=== PATIENT | male | born 1945 | race Caucasian/White ===

== ENCOUNTER 2017-05-27 19:41 | Emergency (ER) | payer MEDICARE, MEDICAID ==
[2017-05-27] MEDS ORDERED: Sodium Chloride 0.9% 10 ML Syringe FLUSH PRN (19:45)
[2017-05-27] MEDS ORDERED: Sodium Chloride 0.9% 2.5 ML Syringe FLUSH PRN (19:45)
--- NOTE | 2017-05-27 19:50 | EDM.PDOC ---
ED HPI GENERAL MEDICAL PROBLEM - General Stated Complaint: PT HAS FEVER Time Seen by Provider: 05/27/17 19:42 - History of Present Illness INITIAL COMMENTS - FREE TEXT/NARRATIVE: HISTORY AND PHYSICAL: History of present illness: Patient 71-year-old male with history of dementia from correction was recently diagnosed with pneumonia and was sent her for fever and generalized weakness upon arrival patient's awake he is alert he's appropriate he follows commands and he has no complaints. He is reporting a temperature of 100.4 prior to arrival Review of systems: As per history of present illness and below otherwise all systems reviewed and negative. Past medical history: As per history of present illness and as reviewed below otherwise noncontributory. Surgical history: As per history of present illness and as reviewed below otherwise noncontributory. Social history: No reported history of drug or alcohol abuse. Family history: As per history of present illness and as reviewed below otherwise noncontributory. Physical exam: HEENT: Atraumatic, normocephalic, pupils reactive, negative for conjunctival pallor or scleral icterus, mucous membranes moist, throat clear, neck supple, nontender, trachea midline. Generally poor dentition with multiple dental caries and tooth loss Lungs: Coarse bilaterally, breath sounds equal bilaterally, chest nontender. Heart: S1S2, regular, negative for clicks, rubs, or JVD. Abdomen: Soft, nondistended, nontender. Negative for masses or hepatosplenomegaly. Negative for costovertebral tenderness. Pelvis: Stable nontender. Genitourinary: Deferred. Rectal: Deferred. Extremities: Atraumatic, negative for cords or calf pain. Neurovascular unremarkable. Neuro: Awake, alert, follows commands moves all extremities limited but grossly nonfocal exam Diagnostics: CBC CMP troponin lactic acid blood culture 2 chest x-ray EKG ABG Therapeutics: IV monitor Impression: 1 history pneumonia #2 history of dementia #3 reported generalized weakness Definitive disposition and diagnosis as appropriate pending reevaluation and review of above. - Related Data Allergies Allergy/AdvReac Type Severity Reaction Status Date / Time No Known Allergies Allergy Verified 05/27/17 19:59 Home Meds: Home Meds ARIPiprazole [Abilify] 10 mg PO DAILY 11/07/14 [History] Aspirin [Jim Chewable] 81 mg PO DAILY 11/07/14 [History] Calcium Citrate/Vitamin D3 [Calcet Creamy Bites] 1 each PO DAILY 11/07/14 [ History] Cholecalciferol (Vitamin D3) [Vitamin D] 400 units PO DAILY 11/07/14 [History] Divalproex Sodium [Depakote ER] 1,000 mg PO DAILY 11/07/14 [History] Divalproex Sodium [Depakote ER] 1,250 mg PO BEDTIME 11/07/14 [History] Furosemide [Lasix] 40 mg PO DAILY 11/07/14 [History] Levothyroxine Sodium [Synthroid] 100 mcg PO ACBREAKFAST 11/07/14 [History] Multivitamin [Multivitamins] 1 each PO DAILY 11/07/14 [History] busPIRone HCl [Buspirone HCl] 15 mg PO DAILY 11/07/14 [History] Social & Family History - Tobacco Use Smoking Status *Q: Former Smoker Years of Tobacco use: 35 - Alcohol Use Days Per Week of Alcohol Use: 0 - Recreational Drug Use Recreational Drug Use: No ED ROS GENERAL - Review of Systems Review Of Systems: ROS reveals no pertinent complaints other than HPI. ED EXAM, GENERAL - Physical Exam Exam: See Below (See dictation) Course - Vital Signs Last Recorded V/S: Last Vital Signs Temp 36.7 C 05/27/17 20:28 Pulse 82 05/27/17 21:23 Resp 20 05/27/17 21:23 BP 107/55 L 05/27/17 21:23 Pulse Ox 95 05/27/17 20:52 - Orders/Labs/Meds Orders: Active Orders 24 hr Category Date Time Status Cardiac Monitoring [RC] . DIRECTED Care 05/27/17 19:45 Active EKG Documentation Completion [RC] STAT Care 05/27/17 19:45 Active Pulse Oximetry [RC] ASDIRECTED Care 05/27/17 19:45 Active Chest 1V Frontal [CR] Stat Exams 05/27/17 19:46 Taken CULTURE BLOOD [BC] Stat Lab 05/27/17 20:04 Received CULTURE BLOOD [BC] Stat Lab 05/27/17 20:10 Received Sodium Chloride 0.9% [Saline Flush] Med 05/27/17 19:45 Active 10 ml FLUSH ASDIRECTED PRN Sodium Chloride 0.9% [Saline Flush] Med 05/27/17 19:45 Active 2.5 ml FLUSH ASDIRECTED PRN Blood Culture x2 Reflex Set [OM.PC] Stat Oth 05/27/17 19:45 Ordered Saline Lock Insert [OM.PC] Stat Ot 05/27/17 19:45 Ordered Medication Orders Sodium Chloride (Saline Flush) 10 ml FLUSH ASDIRECTED PRN PRN Reason: Keep Vein Open Sodium Chloride (Saline Flush) 2.5 ml FLUSH ASDIRECTED PRN PRN Reason: Keep Vein Open Labs: Laboratory Tests 05/27/17 05/27/17 05/27/17 Range/Units 20:04 20:04 20:04 WBC 14.38 H (4.0-11.0) K/uL RBC 4.24 L (4.50-5.90) M/uL Hgb 13.7 (13.0-17.0) g/dL Hct 42.7 (38.0-50.0) % MCV 100.7 H (80.0-98.0) fL MCH 32.3 H (27.0-32.0) pg MCHC 32.1 (31.0-37.0) g/dL RDW Std Deviation 63.5 H (28.0-62.0) fl RDW Coeff of Bernabe 17 H (11.0-15.0) % Plt Count 255 (150-400) K/uL MPV 10.30 (7.40-12.00) fL Neut % (Auto) 74.3 (48.0-80.0) % Lymph % (Auto) 12.0 L (16.0-40.0) % Granite % (Auto) 13.5 (0.0-15.0) % Eos % (Auto) 0.1 (0.0-7.0) % Baso % (Auto) 0.1 (0.0-1.5) % Neut # (Auto) 10.7 H (1.4-5.7) K/uL Lymph # (Auto) 1.7 (0.6-2.4) K/uL Granite # (Auto) 1.9 H (0.0-0.8) K/uL Eos # (Auto) 0.0 (0.0-0.7) K/uL Baso # (Auto) 0.0 (0.0-0.1) K/uL Nucleated RBC % 0.0 /100WBC Nucleated RBCs # 0 K/uL INR 1.06 (0.86-1.11) ABG pH (7.35-7.45) ABG pCO2 (35-45) mmHG ABG pO2 (75-100) mmHG ABG HCO3 (22-26) mEq/L ABG Total CO2 ABG Base Excess (-2.0-2.0) Lactate 1.1 (0.20-2.00) mmol/L Sodium (136-146) mmol/L Potassium (3.5-5.1) mmol/L Chloride (98-110) mmol/L Carbon Dioxide (21-31) mmol/L BUN (6.0-23.0) mg/dL Creatinine (0.6-1.5) mg/dL Est Cr Clr Drug Dosing Estimated GFR (MDRD) ml/min Glucose (60-110) mg/dL Calcium (8.8-10.8) mg/dL Total Bilirubin (0.1-1.5) mg/dL AST (5-40) IU/L ALT (8-54) IU/L Alkaline Phosphatase (40-150) Troponin I (0.0-0.29) NG/ML B-Natriuretic Peptide (<100) PG/ML Total Protein (6.0-8.0) g/dL Albumin (3.4-4.8) g/dL Globulin (2.0-3.5) g/dL Albumin/Globulin Ratio (1.3-2.8) 05/27/17 05/27/17 05/27/17 Range/Units 20:04 20:04 20:27 WBC (4.0-11.0) K/uL RBC (4.50-5.90) M/uL Hgb (13.0-17.0) g/dL Hct (38.0-50.0) % MCV (80.0-98.0) fL MCH (27.0-32.0) pg MCHC (31.0-37.0) g/dL RDW Std Deviation (28.0-62.0) fl RDW Coeff of Bernabe (11.0-15.0) % Plt Count (150-400) K/uL MPV (7.40-12.00) fL Neut % (Auto) (48.0-80.0) % Lymph % (Auto) (16.0-40.0) % Granite % (Auto) (0.0-15.0) % Eos % (Auto) (0.0-7.0) % Baso % (Auto) (0.0-1.5) % Neut # (Auto) (1.4-5.7) K/uL Lymph # (Auto) (0.6-2.4) K/uL Granite # (Auto) (0.0-0.8) K/uL Eos # (Auto) (0.0-0.7) K/uL Baso # (Auto) (0.0-0.1) K/uL Nucleated RBC % /100WBC Nucleated RBCs # K/uL INR (0.86-1.11) ABG pH 7.443 (7.35-7.45) ABG pCO2 50 H (35-45) mmHG ABG pO2 110 H (75-100) mmHG ABG HCO3 34 H (22-26) mEq/L ABG Total CO2 30.5 ABG Base Excess 8.5 H (-2.0-2.0) Lactate (0.20-2.00) mmol/L Sodium 138 (136-146) mmol/L Potassium 4.3 (3.5-5.1) mmol/L Chloride 100 (98-110) mmol/L Carbon Dioxide 31 (21-31) mmol/L BUN 26 H (6.0-23.0) mg/dL Creatinine 1.1 (0.6-1.5) mg/dL Est Cr Clr Drug Dosing TNP Estimated GFR (MDRD) > 60.0 ml/min Glucose 96 (60-110) mg/dL Calcium 9.5 (8.8-10.8) mg/dL Total Bilirubin 0.5 (0.1-1.5) mg/dL AST 27 (5-40) IU/L ALT 12 (8-54) IU/L Alkaline Phosphatase 60 (40-150) Troponin I < 0.10 (0.0-0.29) NG/ML B-Natriuretic Peptide 286 H (<100) PG/ML Total Protein 7.5 (6.0-8.0) g/dL Albumin 3.1 L (3.4-4.8) g/dL Globulin 4.4 H (2.0-3.5) g/dL Albumin/Globulin Ratio 0.7 L (1.3-2.8) Meds: Medications Generic Name Dose Route Start Last Admin Trade Name Armaan PRN Reason Stop Dose Admin Sodium Chloride 10 ml 05/27/17 19:45 Saline Flush FLUSH ASDIRECTED PRN Keep Vein Open Sodium Chloride 2.5 ml 05/27/17 19:45 Saline Flush FLUSH ASDIRECTED PRN Keep Vein Open Departure - Departure Time of Disposition: 21:28 Disposition: Home, Self-Care 01 Condition: Good Clinical Impression: Pneumonia - Discharge Information Additional Instructions: The following information is given to patients seen in the emergency department who are being discharged to home. This information is to outline your options for follow-up care. We provide all patients seen in our emergency department with a follow-up referral. The need for follow-up, as well as the timing and circumstances, are variable depending upon the specifics of your emergency department visit. If you don't have a primary care physician on staff, we will provide you with a referral. We always advise you to contact your personal physician following an emergency department visit to inform them of the circumstance of the visit and for follow-up with them and/or the need for any referrals to a consulting specialist. The emergency department will also refer you to a specialist when appropriate. This referral assures that you have the opportunity for followup care with a specialist. All of these measure are taken in an effort to provide you with optimal care, which includes your followup. Under all circumstances we always encourage you to contact your private physician who remains a resource for coordinating your care. When calling for followup care, please make the office aware that this follow-up is from your recent emergency room visit. If for any reason you are refused follow-up, please contact the [facility] emergency department at and asked to speak to the emergency department charge nurse. Continue current medication follow-up primary medical doctor on today's return as needed as discussed - My Orders Last 24 Hours: My Active Orders 05/27/17 19:45 Cardiac Monitoring [RC] . DIRECTED EKG Documentation Completion [RC] STAT Pulse Oximetry [RC] ASDIRECTED Sodium Chloride 0.9% [Saline Flush] 10 ml FLUSH ASDIRECTED PRN Sodium Chloride 0.9% [Saline Flush] 2.5 ml FLUSH ASDIRECTED PRN Blood Culture x2 Reflex Set [OM.PC] Stat Saline Lock Insert [OM.PC] Stat 05/27/17 19:46 Chest 1V Frontal [CR] Stat 05/27/17 20:04 CULTURE BLOOD [BC] Stat 05/27/17 20:10 CULTURE BLOOD [BC] Stat - Assessment/Plan Last 24 Hours: My Active Orders 05/27/17 19:45 Cardiac Monitoring [RC] . DIRECTED EKG Documentation Completion [RC] STAT Pulse Oximetry [RC] ASDIRECTED Sodium Chloride 0.9% [Saline Flush] 10 ml FLUSH ASDIRECTED PRN Sodium Chloride 0.9% [Saline Flush] 2.5 ml FLUSH ASDIRECTED PRN Blood Culture x2 Reflex Set [OM.PC] Stat Saline Lock Insert [OM.PC] Stat 05/27/17 19:46 Chest 1V Frontal [CR] Stat 05/27/17 20:04 CULTURE BLOOD [BC] Stat 05/27/17 20:10 CULTURE BLOOD [BC] Stat
[2017-05-27 20:39] LABS: CHLORIDE,CL 100 mmol/L (98-110); SODIUM,NA 138 mmol/L (136-146)
[2017-05-28 01:17] VITALS: BP 106/65
--- NOTE | 2017-05-28 11:07 | CR ---
EXAM DATE: 05/27/17 PATIENT'S AGE: 71 Patient: HONEY LEON Facility: [place], [place] Site . Site : 1945 Study: XRay Chest [id number]/28/2017 9:10:25 PM Ordering Physician: Doctor Garrison Final Report: HISTORY: Shortness of breath. FINDINGS: AP portable chest radiograph is compared with 06 Nov 2014. The patient`s chin obscures the right apex. The cardiac silhouette is normal. Hyper aeration is present. There is fibrotic changes in the lower lung salgado. There is smooth pleural-based density in the lower hemithoraces bilaterally without change suggesting pleural thickening rather than fluid. This is greater on the right. There is stable left apical pleural thickening present. There is surgical clips in left upper quadrant. IMPRESSION: 1. Apical pleural thickening and lateral pleural thickening seen along both hemithoraces, [id number] unchanged from prior exam. 2. Aeration with fibrotic changes in the lower lung field. 3. No significant interval change compared to prior exam. Dictated by Romana Quezada MD @ 05/27/2017 9:50:42 PM Dictated by: Romana Quezada MD @ 05/27/2017 21:50:48 (Electronic Signature) Report Signed by Proxy. YESENIA
== END 2017-05-27 21:55 | disposition home or self-care (01) ==
LOC: MW.ED 19:41
DX: J18.9 Pneumonia, unspecified organism (principal); Z79.82 Long term (current) use of aspirin; Z79.899 Other long term (current) drug therapy; Z87.891 Personal history of nicotine dependence
CPT/HCPCS: 36415; 36600; 71010; 71010-26; 80053; 82803; 83605; 83880; 84484; 85025; 85610; 87040; 87804; 93005; 99284; 99284-25

== ENCOUNTER 2017-09-06 09:49 | Emergency (ER) | payer MEDICARE, MEDICAID ==
--- NOTE | 2017-09-06 10:04 | EDM.PDOC ---
ED HPI GENERAL MEDICAL PROBLEM - General Chief Complaint: Respiratory Problem Stated Complaint: AMB Time Seen by Provider: 09/06/17 09:50 Source of Information: Reports: Patient History Limitations: Reports: No Limitations - History of Present Illness INITIAL COMMENTS - FREE TEXT/NARRATIVE: History of present illness: []Patient has a history of dementia and arrived by EMS from [facility] due to hypoxia on 2 L of oxygen. Review of systems: As per history of present illness and below otherwise all systems reviewed and negative. Past medical history: As per history of present illness and as reviewed below otherwise noncontributory. Surgical history: As per history of present illness and as reviewed below otherwise noncontributory. Social history: No reported history of drug or alcohol abuse. Family history: As per history of present illness and as reviewed below otherwise noncontributory. Physical exam: General: Well developed, well nourished in NAD HEENT: Atraumatic, normocephalic, pupils reactive, negative for conjunctival pallor or scleral icterus, mucous membranes moist, throat clear, neck supple, nontender, trachea midline. Lungs: Clear to auscultation, breath sounds equal bilaterally, chest nontender. Heart: S1S2, regular, negative for clicks, rubs, or JVD. Abdomen: Soft, nondistended, nontender. Negative for masses or hepatosplenomegaly. Negative for costovertebral tenderness. Pelvis: Stable nontender. Genitourinary: Deferred. Rectal: Deferred. Extremities: Atraumatic, negative for cords or calf pain. Neurovascular unremarkable. Neuro: Awake, alert, oriented. Cranial nerves II through XII unremarkable. Cerebellum unremarkable. Motor and sensory unremarkable throughout. Exam nonfocal. Diagnostics: []CBC normal, chemistry normal, chest x-ray shows chronic pleural thickening, atelectasis no acute findings, UA positive leuk esterase and 5-8 WBCs Therapeutics: []DuoNeb given here soluMedrol in route given by EMS, he maintain his O2 sats at 94 with 2 L O2 Impression: []Upper respiratory infection, UTI Plan: []Bactrim twice a day for 10 days Definitive disposition and diagnosis as appropriate pending reevaluation and review of above. - Related Data Allergies Allergy/AdvReac Type Severity Reaction Status Date / Time No Known Allergies Allergy Verified 05/27/17 19:59 Home Meds: Home Meds ARIPiprazole [Abilify] 15 mg PO BEDTIME 11/07/14 [History] Aspirin [Jim Chewable] 81 mg PO DAILY 11/07/14 [History] Calcium Citrate/Vitamin D3 [Calcet Creamy Bites] 1 each PO DAILY 11/07/14 [ History] Cholecalciferol (Vitamin D3) [Vitamin D] 400 units PO DAILY 11/07/14 [History] Divalproex Sodium [Depakote ER] 1,000 mg PO BID 11/07/14 [History] Furosemide [Lasix] 40 mg PO DAILY 11/07/14 [History] Levothyroxine Sodium [Synthroid] 100 mcg PO SUTUWETHSA@0730 11/07/14 [History] Multivitamin [Multivitamins] 1 each PO DAILY 11/07/14 [History] busPIRone HCl [Buspirone HCl] 30 mg PO BID 11/07/14 [History] Acetaminophen [Tylenol Arthritis] 650 mg PO Q6H PRN 09/06/17 [History] Divalproex Sodium 250 mg PO BEDTIME 09/06/17 [History] Levothyroxine 150 mcg PO MOFR@0730 09/06/17 [History] Solifenacin Succinate [Vesicare] 10 mg PO DAILY 09/06/17 [History] Sulfamethoxazole/Trimethoprim [Bactrim Ds Tablet] 1 each PO BID #20 tablet 09/06 [Rx] Thiamine [Vitamin B-1] 100 mg PO DAILY 09/06/17 [History] Past Medical History HEENT History: Reports: Impaired Vision Genitourinary History: Reports: Other (See Below) Other Genitourinary History: Chronic Kidney Disease Psychiatric History: Reports: Addiction, Alzheimers Disease, Anxiety, Dementia , Depression, Mood Swings, Schizophrenia Endocrine/Metabolic History: Reports: Diabetes, Type II Social & Family History - Family History Family Medical History: Noncontributory - Tobacco Use Smoking Status *Q: Never Smoker Years of Tobacco use: 35 Used Tobacco, but Quit: Yes Month Tobacco Last Used: Many years ago - Alcohol Use Days Per Week of Alcohol Use: 0 - Recreational Drug Use Recreational Drug Use: No ED ROS GENERAL - Review of Systems Review Of Systems: See Below (History of present illness) ED EXAM, GENERAL - Physical Exam Exam: See Below (See history of present illness) Course - Vital Signs Last Recorded V/S: Last Vital Signs Temp 97.8 F 09/06/17 09:52 Pulse 87 09/06/17 12:15 Resp 18 09/06/17 12:15 BP 101/63 09/06/17 12:15 Pulse Ox 93 L 09/06/17 12:15 - Orders/Labs/Meds Orders: Active Orders 24 hr Category Date Time Status Chest 1V Frontal [CR] Stat Exams 09/06/17 10:03 Taken Labs: Laboratory Tests 09/06/17 09/06/17 09/06/17 Range/Units 10:14 10:14 10:14 WBC 9.43 (4.0-11.0) K/uL RBC 4.49 L (4.50-5.90) M/uL Hgb 14.7 (13.0-17.0) g/dL Hct 45.8 (38.0-50.0) % MCV 102.0 H (80.0-98.0) fL MCH 32.7 H (27.0-32.0) pg MCHC 32.1 (31.0-37.0) g/dL RDW Std Deviation 62.1 H (28.0-62.0) fl RDW Coeff of Bernabe 17 H (11.0-15.0) % Plt Count 229 (150-400) K/uL MPV 10.30 (7.40-12.00) fL Neut % (Auto) 58.5 (48.0-80.0) % Lymph % (Auto) 28.8 (16.0-40.0) % [place] % (Auto) 11.1 (0.0-15.0) % Eos % (Auto) 1.4 (0.0-7.0) % Baso % (Auto) 0.2 (0.0-1.5) % Neut # (Auto) 5.5 (1.4-5.7) K/uL Lymph # (Auto) 2.7 H (0.6-2.4) K/uL [place] # (Auto) 1.1 H (0.0-0.8) K/uL Eos # (Auto) 0.1 (0.0-0.7) K/uL Baso # (Auto) 0.0 (0.0-0.1) K/uL Nucleated RBC % 0.0 /100WBC Nucleated RBCs # 0 K/uL Sodium 141 (136-148) mmol/L Potassium 4.4 (3.5-5.1) mmol/L Chloride 103 (98-107) mmol/L Carbon Dioxide 35.6 H (21.0-32.0) mmol/L BUN 32 H (7.0-18.0) mg/dL Creatinine 1.3 (0.8-1.3) mg/dL Est Cr Clr Drug Dosing 58.03 mL/min Estimated GFR (MDRD) 54.6 ml/min Glucose 113 H (74-106) mg/dL Calcium 9.5 (8.5-10.1) mg/dL Total Bilirubin 0.4 (0.2-1.0) mg/dL AST 28 (15-37) IU/L ALT 14 (14-63) IU/L Alkaline Phosphatase 84 (46-116) U/L B-Natriuretic Peptide 222 H (<100) PG/ML Total Protein 7.8 (6.4-8.2) g/dL Albumin 2.9 L (3.4-5.0) g/dL Globulin 4.9 H (2.0-3.5) g/dL Albumin/Globulin Ratio 0.6 L (1.3-2.8) Urine Color Urine Appearance Urine pH (5.0-8.0) Ur Specific Carlyle (1.001-1.035) Urine Protein (NEGATIVE) mg/dL Urine Glucose (UA) (NEGATIVE) mg/dL Urine Ketones (NEGATIVE) mg/dL Urine Occult Blood (NEGATIVE) Urine Nitrite (NEGATIVE) Urine Bilirubin (NEGATIVE) Urine Urobilinogen (<2.0) EU/dL Ur Leukocyte Esterase (NEGATIVE) Urine RBC (0-2/HPF) Urine WBC (0-5/HPF) Ur Epithelial Cells (NONE-FEW) Urine Bacteria (NEGATIVE) 09/06/17 Range/Units 11:45 WBC (4.0-11.0) K/uL RBC (4.50-5.90) M/uL Hgb (13.0-17.0) g/dL Hct (38.0-50.0) % MCV (80.0-98.0) fL MCH (27.0-32.0) pg MCHC (31.0-37.0) g/dL RDW Std Deviation (28.0-62.0) fl RDW Coeff of Bernabe (11.0-15.0) % Plt Count (150-400) K/uL MPV (7.40-12.00) fL Neut % (Auto) (48.0-80.0) % Lymph % (Auto) (16.0-40.0) % [place] % (Auto) (0.0-15.0) % Eos % (Auto) (0.0-7.0) % Baso % (Auto) (0.0-1.5) % Neut # (Auto) (1.4-5.7) K/uL Lymph # (Auto) (0.6-2.4) K/uL [place] # (Auto) (0.0-0.8) K/uL Eos # (Auto) (0.0-0.7) K/uL Baso # (Auto) (0.0-0.1) K/uL Nucleated RBC % /100WBC Nucleated RBCs # K/uL Sodium (136-148) mmol/L Potassium (3.5-5.1) mmol/L Chloride (98-107) mmol/L Carbon Dioxide (21.0-32.0) mmol/L BUN (7.0-18.0) mg/dL Creatinine (0.8-1.3) mg/dL Est Cr Clr Drug Dosing mL/min Estimated GFR (MDRD) ml/min Glucose (74-106) mg/dL Calcium (8.5-10.1) mg/dL Total Bilirubin (0.2-1.0) mg/dL AST (15-37) IU/L ALT (14-63) IU/L Alkaline Phosphatase (46-116) U/L B-Natriuretic Peptide (<100) PG/ML Total Protein (6.4-8.2) g/dL Albumin (3.4-5.0) g/dL Globulin (2.0-3.5) g/dL Albumin/Globulin Ratio (1.3-2.8) Urine Color YELLOW Urine Appearance SLT CLOUDY Urine pH 5.5 (5.0-8.0) Ur Specific Carlyle 1.010 (1.001-1.035) Urine Protein NEGATIVE (NEGATIVE) mg/dL Urine Glucose (UA) NEGATIVE (NEGATIVE) mg/dL Urine Ketones NEGATIVE (NEGATIVE) mg/dL Urine Occult Blood MODERATE (NEGATIVE) Urine Nitrite NEGATIVE (NEGATIVE) Urine Bilirubin NEGATIVE (NEGATIVE) Urine Urobilinogen 0.2 (<2.0) EU/dL Ur Leukocyte Esterase MODERATE (NEGATIVE) Urine RBC 15-20 (0-2/HPF) Urine WBC 5-8 (0-5/HPF) Ur Epithelial Cells OCCASIONAL (NONE-FEW) Urine Bacteria RARE (NEGATIVE) Departure - Departure Time of Disposition: 12:26 Disposition: Home, Self-Care 01 Condition: Good Clinical Impression: Upper respiratory infection, UTI (urinary tract infection) - Discharge Information Prescriptions: Sulfamethoxazole/Trimethoprim [Bactrim Ds Tablet] 1 each PO BID #20 tablet Forms: ED Department Discharge - My Orders Last 24 Hours: My Active Orders 09/06/17 10:03 Chest 1V Frontal [CR] Stat - Assessment/Plan Last 24 Hours: My Active Orders 09/06/17 10:03 Chest 1V Frontal [CR] Stat
[2017-09-06] MEDS ORDERED: Albuterol/Ipratropium 3.0-0.5 MG/3 ML Neb Soln NEB ONE (12:31)
[2017-09-06 12:59] VITALS: BP 110/68
--- NOTE | 2017-09-08 11:07 | CR ---
EXAM DATE: 09/06/17 PATIENT'S AGE: 72 Patient: HONEY LEON Facility: [place], [place] Site . Site : 1945 Study: XRay Chest [id number]/10/2018 10:32:13 AM Ordering Physician: Anthony Lopez Final Report: INDICATION: Pain. Shortness of breath. TECHNIQUE: AP portable chest x-ray. COMPARISON: Chest x-ray 05/27/2017. FINDINGS: Heart size normal. Aorta tortuous. Surgical changes in the midline and left abdomen. Pleural fluid and pleural thickening in the right lower chest stable. Extra pulmonary opacity in the left lung apex and along the left lateral chest diffusely consistent with pleural fluid or pleural thickening. Tortuous and possibly dilated thoracic aorta. Patchy opacity in the left lung diffusely and in the right mid and lower lung may be largely related atelectasis or scarring however some of the opacity in the right lower lung is more prominent could be due related to some superimposed infiltrate. Chest otherwise unremarkable. Dictated by Ambrose Oliva MD @ Sep 06 2017 10:47AM (Electronic Signature) Report Signed by Proxy. YESENIA
[2017-09-08] MEDS ORDERED: Albuterol/Ipratropium 3.0-0.5 MG/3 ML Neb Soln NEB ONE (17:18)
[2017-09-08] MEDS ORDERED: Furosemide 40 MG/4 ML VIAL IVPUSH ONE (17:19)
== END 2017-09-06 13:00 | disposition home or self-care (01) ==
LOC: MW.ED 09:49
DX: J06.9 Acute upper respiratory infection, unspecified (principal); N39.0 Urinary tract infection, site not specified; Z79.82 Long term (current) use of aspirin; E11.22 Type 2 diabetes mellitus with diabetic chronic kidney disease; G30.9 Alzheimer's disease, unspecified; F02.80 Dementia in other diseases classified elsewhere, unspecified severity, without behavioral disturbance, psychotic disturbance, mood disturbance, and anxiety; Z79.899 Other long term (current) drug therapy
CPT/HCPCS: 36415; 71045; 71045-26; 80053; 81001; 83880; 85025; 94640; 99283; 99284

== ENCOUNTER 2017-09-08 17:20 | Inpatient (IN) | payer MEDICARE, MEDICAID ==
[2017-09-08] MEDS ORDERED: Furosemide 40 MG/4 ML VIAL IVPUSH ONE (17:25)
[2017-09-08] MEDS ORDERED: Sodium Chloride 0.9% 10 ML Syringe FLUSH PRN (17:25)
[2017-09-08] MEDS ORDERED: Sodium Chloride 0.9% 2.5 ML Syringe FLUSH PRN (17:25)
[2017-09-08] MEDS ORDERED: Albuterol/Ipratropium 3.0-0.5 MG/3 ML Neb Soln NEB ONE (17:25)
--- NOTE | 2017-09-08 17:26 | EDM.PDOC ---
ED HPI GENERAL MEDICAL PROBLEM - General Chief Complaint: Respiratory Problem Stated Complaint: AMB Time Seen by Provider: 09/08/17 17:22 Source of Information: Reports: EMS History Limitations: Reports: No Limitations - History of Present Illness INITIAL COMMENTS - FREE TEXT/NARRATIVE: History of present illness: []Patient was seen here 2 days ago with hypoxia and worked up shown to have atelectasis and was discharged back to [facility] with oxygen, antibiotics, steroids and albuterol. Today he got worse with fever, hypoxia, increasing respiratory distress and decrease mental status. Patient arrived by EMS. Review of systems: As per history of present illness and below otherwise all systems reviewed and negative. Past medical history: As per history of present illness and as reviewed below otherwise noncontributory. Surgical history: As per history of present illness and as reviewed below otherwise noncontributory. Social history: No reported history of drug or alcohol abuse. Family history: As per history of present illness and as reviewed below otherwise noncontributory. Physical exam: General: Well developed, well nourished mild respiratory distress HEENT: Atraumatic, normocephalic, pupils reactive, negative for conjunctival pallor or scleral icterus, mucous membranes moist, throat clear, neck supple, nontender, trachea midline. Lungs: Rhonchi to auscultation, breath sounds equal bilaterally, chest nontender. Heart: S1S2, regular, negative for clicks, rubs, or JVD. Bilateral 2+ pitting edema lower extremities probably Abdomen: Soft, nondistended, nontender. Negative for masses or hepatosplenomegaly. Negative for costovertebral tenderness. Pelvis: Stable nontender. Genitourinary: Deferred. Rectal: Deferred. Extremities: Atraumatic, negative for cords or calf pain. Neurovascular unremarkable. Neuro: Awake,, Exam nonfocal. Diagnostics: []Hypertensive to 245/203, a 85% O2 sat on nonrebreathing, respiratory rate 48. EKG sinus tachycardia at 148, on the monitor appeared to be a fib /flutter temperature of 102.5 chest x-ray shows bilateral lower lobe pneumonia CBC shows white count of 17,000 with left shift, chemistry, blood cultures, oriented Therapeutics: []Trial of diltiazem given 2, IV fluids begun, rectal Tylenol, IV fluids, Lasix Levaquin begun treatment blood cultures drawn Impression: []Bilateral pneumonia, hypoxia, dehydration Plan: []Admit to [facility] telemetry to Dr. Whalen Definitive disposition and diagnosis as appropriate pending reevaluation and review of above. - Related Data Allergies Allergy/AdvReac Type Severity Reaction Status Date / Time No Known Allergies Allergy Verified 09/08/17 17:33 Home Meds: Home Meds ARIPiprazole [Abilify] 15 mg PO BEDTIME 11/07/14 [History] Aspirin [Jim Chewable] 81 mg PO DAILY 11/07/14 [History] Calcium Citrate/Vitamin D3 [Calcet Creamy Bites] 1 each PO DAILY 11/07/14 [ History] Cholecalciferol (Vitamin D3) [Vitamin D] 400 units PO DAILY 11/07/14 [History] Divalproex Sodium [Depakote ER] 1,000 mg PO BID 11/07/14 [History] Furosemide [Lasix] 40 mg PO DAILY 11/07/14 [History] Levothyroxine Sodium [Synthroid] 100 mcg PO SUTUWETHSA@0730 11/07/14 [History] Multivitamin [Multivitamins] 1 each PO DAILY 11/07/14 [History] busPIRone HCl [Buspirone HCl] 30 mg PO BID 11/07/14 [History] Acetaminophen [Tylenol Arthritis] 650 mg PO Q6H PRN 09/06/17 [History] Divalproex Sodium 250 mg PO BEDTIME 09/06/17 [History] Levothyroxine 150 mcg PO MOFR@0730 09/06/17 [History] Solifenacin Succinate [Vesicare] 10 mg PO DAILY 09/06/17 [History] Sulfamethoxazole/Trimethoprim [Bactrim Ds Tablet] 1 each PO BID #20 tablet 09/06 [Rx] Thiamine [Vitamin B-1] 100 mg PO DAILY 09/06/17 [History] predniSONE [Prednisone] 20 mg PO DAILY #5 tablet 09/06/17 [Rx] Past Medical History HEENT History: Reports: Impaired Vision Genitourinary History: Reports: Other (See Below) Other Genitourinary History: Chronic Kidney Disease Psychiatric History: Reports: Addiction, Alzheimers Disease, Anxiety, Dementia , Depression, Mood Swings, Schizophrenia Endocrine/Metabolic History: Reports: Diabetes, Type II Social & Family History - Family History Family Medical History: Noncontributory - Tobacco Use Smoking Status *Q: Never Smoker Years of Tobacco use: 35 Used Tobacco, but Quit: Yes Month Tobacco Last Used: Many years ago - Alcohol Use Days Per Week of Alcohol Use: 0 - Recreational Drug Use Recreational Drug Use: No ED ROS GENERAL - Review of Systems Review Of Systems: See Below (See history of present illness) ED EXAM, GENERAL - Physical Exam Exam: See Below (See history of present illness) Course - Vital Signs Last Recorded V/S: Last Vital Signs Temp 102.7 F H 09/08/17 18:07 Pulse 57 L 09/08/17 17:35 Resp 48 H 09/08/17 17:35 BP 249/203 H 09/08/17 17:35 Pulse Ox 85 L 09/08/17 17:39 - Orders/Labs/Meds Orders: Active Orders 24 hr Category Date Time Status EKG Documentation Completion [RC] STAT Care 09/08/17 17:22 Active RT Aerosol Therapy [RC] ASDIRECTED Care 09/08/17 17:25 Active Chest 1V Frontal [CR] Stat Exams 09/08/17 17:39 Taken COMPREHENSIVE METABOLIC PN,CMP [CHEM] Stat Lab 09/08/17 18:18 Received CULTURE BLOOD [BC] Stat Lab 09/08/17 17:38 Received CULTURE BLOOD [BC] Stat Lab 09/08/17 17:58 Received TROPONIN I [CHEM] Stat Lab 09/08/17 18:18 Received Levofloxacin/Dextrose 5%-Water [Levaquin in D5W 500 MG/ Med 09/08/17 18:08 Active 100 ML] 500 mg Premix Bag 1 bag IV ONETIME Metoprolol Tartrate [Lopressor] Med 09/08/17 18:45 Active 5 mg IVPUSH Q5M Sodium Chloride 0.9% [Saline Flush] Med 09/08/17 17:25 Active 10 ml FLUSH ASDIRECTED PRN Sodium Chloride 0.9% [Saline Flush] Med 09/08/17 17:25 Active 2.5 ml FLUSH ASDIRECTED PRN Blood Culture x2 Reflex Set [OM.PC] Stat Oth 09/08/17 17:34 Ordered Saline Lock Insert [OM.PC] Stat Oth 09/08/17 17:24 Ordered Medication Orders Levofloxacin/Dextrose 500 mg/ (Premix) 100 mls @ 100 mls/hr IV ONETIME ONE Stop: 09/08/17 19:07 Last Admin: 09/08/17 18:22 Dose: 100 mls/hr Metoprolol Tartrate (Lopressor) 5 mg IVPUSH Q5M TALIA Stop: 09/08/17 18:56 Sodium Chloride (Saline Flush) 10 ml FLUSH ASDIRECTED PRN PRN Reason: Keep Vein Open Sodium Chloride (Saline Flush) 2.5 ml FLUSH ASDIRECTED PRN PRN Reason: Keep Vein Open Labs: Laboratory Tests 09/08/17 09/08/17 09/08/17 Range/Units 17:20 18:18 18:18 WBC Cancelled 17.19 H RBC Cancelled 4.40 L Hgb Cancelled 14.4 Hct Cancelled 44.6 MCV Cancelled 101.4 H MCH Cancelled 32.7 H MCHC Cancelled 32.3 RDW Std Deviation Cancelled 62.5 H RDW Coeff of Bernabe Cancelled 17 H Plt Count Cancelled 278 MPV Cancelled 10.70 Neut % (Auto) Cancelled 86.4 H Lymph % (Auto) Cancelled 10.6 L Travis % (Auto) Cancelled 3.0 Eos % (Auto) Cancelled 0.0 Baso % (Auto) Cancelled 0.0 Neut # (Auto) Cancelled 14.9 H Lymph # (Auto) Cancelled 1.8 Travis # (Auto) Cancelled 0.5 Eos # (Auto) Cancelled 0.0 Baso # (Auto) Cancelled 0.0 Add Manual Diff Cancelled Neutrophils % (Manual) Cancelled Band Neutrophils % Cancelled Lymphocytes % (Manual) Cancelled Atypical Lymphs % Cancelled Immat Monocytes % (Man) Cancelled Monocytes % (Manual) Cancelled Eosinophils % (Manual) Cancelled Basophils % (Manual) Cancelled Metamyelocytes % Cancelled Myelocytes % Cancelled Promyelocytes % Cancelled Blast Cells % Cancelled Plasma Cell % (Manual) Cancelled Nucleated RBC % Cancelled 0.0 Immature Gran # Cancelled Absolute Neutrophils Cancelled Absolute Seg Neuts Cancelled Band Neutrophils # Cancelled Lymphocytes # (Manual) Cancelled Monocytes # (Manual) Cancelled Eosinophils # (Manual) Cancelled Basophils # (Manual) Cancelled Absolute Metamyelocyte Cancelled Absolute Myelocytes Cancelled Absolute Promyelocytes Cancelled Absolute Plasma Cells Cancelled Nucleated RBCs Cancelled Nucleated RBCs # Cancelled 0 Differential Comment Cancelled Pathologist Review Cancelled Bilobed Neuts Cancelled Hypersegmented Neuts Cancelled Variant Lymphocytes Cancelled Atypical Lymphocytes Cancelled Abnormal Lymphocytes Cancelled Plasmacytoid Lymphs Cancelled Reactive Lymphocytes Cancelled Vacuolated Monocytes Cancelled Absolute Blast Cells Cancelled Smudge Cells Cancelled Toxic Granulation Cancelled Dohle Bodies Cancelled Pelger-Huet Cells Cancelled Megakaryocytic Frags Cancelled Conchis Rods Cancelled WBC Morphology Comment Cancelled Platelet Estimate Cancelled Hypogranular Platelets Cancelled Platelet Agranulation Cancelled Clumped Platelets Cancelled Giant Platelets Cancelled Platelet Satelliting Cancelled Bizarre Platelets Cancelled Plt Morphology Comment Cancelled Polychromasia Cancelled Hypochromasia Cancelled Poikilocytosis Cancelled Basophilic Stippling Cancelled Anisocytosis Cancelled Microcytosis Cancelled Macrocytosis Cancelled Spherocytes Cancelled Micro Spherocytes Cancelled Pappenheimer Bodies Cancelled Siderocytes Cancelled Sickle Cells Cancelled Target Cells Cancelled Tear Drop Cells Cancelled Ovalocytes Cancelled Stomatocytes Cancelled Helmet Cells Cancelled [place] Bodies Cancelled [place] Rings Cancelled Annika Cells Cancelled Elliptocytes Cancelled Acanthocytes (Spur) Cancelled Rouleaux Cancelled Hemoglobin C Crystals Cancelled Schistocytes Cancelled RBC Morph Comment Cancelled Smear Path Review Cancelled Rohit Bodies Cancelled B-Natriuretic Peptide 379 H (<100) PG/ML Bld Parasites Quantity Cancelled Slides for Path Review Cancelled Meds: Medications Generic Name Dose Route Start Last Admin Trade Name Freq PRN Reason Stop Dose Admin Levofloxacin/Dextrose 500 mg/ 100 mls @ 100 mls/hr 09/08/17 18:08 09/08/17 18 :22 Premix IV 09/08/17 19:07 100 mls/hr ONETIME ONE Administration Metoprolol Tartrate 5 mg 09/08/17 18:45 Lopressor IVPUSH 09/08/17 18:56 Q5M TALIA Sodium Chloride 10 ml 09/08/17 17:25 Saline Flush FLUSH ASDIRECTED PRN Keep Vein Open Sodium Chloride 2.5 ml 09/08/17 17:25 Saline Flush FLUSH ASDIRECTED PRN Keep Vein Open Discontinued Medications Generic Name Dose Route Start Last Admin Trade Name Freq PRN Reason Stop Dose Admin Acetaminophen 650 mg 09/08/17 17:34 09/08/17 18:07 Tylenol RECTAL 09/08/17 17:35 650 mg NOW ONE Administration Albuterol/Ipratropium 3 ml 09/08/17 17:25 09/08/17 17:40 Duoneb 3.0-0.5 Mg/3 Ml NEB 09/08/17 17:26 3 ml ONETIME ONE Administration Diltiazem HCl 20 mg 09/08/17 17:56 09/08/17 18:20 Diltiazem IVPUSH 09/08/17 17:57 20 mg ONETIME ONE Administration Diltiazem HCl Confirm 09/08/17 17:55 09/08/17 18:09 Diltiazem Administered 09/08/17 17:56 Not Given Dose 25 mg .ROUTE .STK-MED ONE Furosemide 40 mg 09/08/17 17:25 09/08/17 18:07 Lasix IVPUSH 09/08/17 17:26 40 mg NOW ONE Administration Furosemide Confirm 09/08/17 17:45 09/08/17 18:09 Lasix Administered 09/08/17 17:46 Not Given Dose 40 mg .ROUTE .STK-MED ONE Lorazepam 0.5 mg 09/08/17 18:07 09/08/17 18:21 Ativan IVPUSH 09/08/17 18:08 0.5 mg ONETIME ONE Administration Nitroglycerin 1 gm 09/08/17 17:33 09/08/17 17:50 Nitro-Bid 2% TOP 09/08/17 17:34 1 gm ONETIME ONE Administration Departure - Departure Time of Disposition: 18:52 Disposition: Admitted As Inpatient 68 Condition: Serious Clinical Impression: Bilateral pneumonia, Hypoxia, Dehydration - Discharge Information - My Orders Last 24 Hours: My Active Orders 09/08/17 17:22 EKG Documentation Completion [RC] STAT 09/08/17 17:24 Saline Lock Insert [OM.PC] Stat 09/08/17 17:25 RT Aerosol Therapy [RC] ASDIRECTED Sodium Chloride 0.9% [Saline Flush] 10 ml FLUSH ASDIRECTED PRN Sodium Chloride 0.9% [Saline Flush] 2.5 ml FLUSH ASDIRECTED PRN 09/08/17 17:34 Blood Culture x2 Reflex Set [OM.PC] Stat 09/08/17 17:38 CULTURE BLOOD [BC] Stat 09/08/17 17:39 Chest 1V Frontal [CR] Stat 09/08/17 17:58 CULTURE BLOOD [BC] Stat 09/08/17 18:08 Levofloxacin/Dextrose 5%-Water [Levaquin in D5W 500 MG/100 ML] 500 mg Premix Bag 1 bag IV ONETIME 09/08/17 18:18 COMPREHENSIVE METABOLIC PN,CMP [CHEM] Stat TROPONIN I [CHEM] Stat 09/08/17 18:45 Metoprolol Tartrate [Lopressor] 5 mg IVPUSH Q5M - Assessment/Plan Last 24 Hours: My Active Orders 09/08/17 17:22 EKG Documentation Completion [RC] STAT 09/08/17 17:24 Saline Lock Insert [OM.PC] Stat 09/08/17 17:25 RT Aerosol Therapy [RC] ASDIRECTED Sodium Chloride 0.9% [Saline Flush] 10 ml FLUSH ASDIRECTED PRN Sodium Chloride 0.9% [Saline Flush] 2.5 ml FLUSH ASDIRECTED PRN 09/08/17 17:34 Blood Culture x2 Reflex Set [OM.PC] Stat 09/08/17 17:38 CULTURE BLOOD [BC] Stat 09/08/17 17:39 Chest 1V Frontal [CR] Stat 09/08/17 17:58 CULTURE BLOOD [BC] Stat 09/08/17 18:08 Levofloxacin/Dextrose 5%-Water [Levaquin in D5W 500 MG/100 ML] 500 mg Premix Bag 1 bag IV ONETIME 09/08/17 18:18 COMPREHENSIVE METABOLIC PN,CMP [CHEM] Stat TROPONIN I [CHEM] Stat 09/08/17 18:45 Metoprolol Tartrate [Lopressor] 5 mg IVPUSH Q5M
[2017-09-08] MEDS ORDERED: Nitroglycerin 2% Oint 1 GM UD Packet TOP ONE (17:33)
[2017-09-08] MEDS ORDERED: Acetaminophen 650 MG Supp RECTAL ONE (17:34)
[2017-09-08] MEDS ORDERED: Furosemide 40 MG/4 ML VIAL ONE (17:45)
[2017-09-08] MEDS ORDERED: Diltiazem 25 MG/5 ML SDV ONE (17:55)
[2017-09-08] MEDS: Diltiazem 25 MG/5 ML SDV IVPUSH ONE ×2 (18:07→18:20)
[2017-09-08] MEDS ORDERED: LORazepam 2 MG/ML SDV IVPUSH ONE (18:07)
[2017-09-08] MEDS ORDERED: Levofloxacin/Dextrose 5%-Water 500 MG in Premix Bag 1 BAG IV ONE (18:08)
[2017-09-08] MEDS ORDERED: Diltiazem 100 MG in Sodium Chloride 0.9% 100 ML IV SCH (18:30)
[2017-09-08 18:59] LABS: CHLORIDE,CL 101 mmol/L (98-107); SODIUM,NA 140 mmol/L (136-148)
[2017-09-08] MEDS: Metoprolol Tartrate 5 MG/5 ML SDV IVPUSH SCH ×3 (18:59→23:02)
[2017-09-08] MEDS ORDERED: Piperacillin/Tazobactam 2.25 GM in Sodium Chloride 0.9% 50 ML IV ONE (19:20)
[2017-09-08] MEDS ORDERED: Sodium Chloride 0.9% 50 ML ONE (19:38)
--- NOTE | 2017-09-08 19:38 | PCM.HP ---
H&P History of Present Illness - General Date of Service: 09/08/17 Admit Problem/Dx: Admission Diagnosis/Problem Admission Diagnosis/Problem Pneumonia - History of Present Illness Initial Comments - Free Text/Narative: He presented to the ED two days ago for hypoxia. He was discharged back to [facility] where he lives on antibiotics. He returns with increased dyspnea, hypoxia and fever. CXR shows a multifocal pneumonia. He was noted in the ED to have atrial fibrillation with RVR to a rate of 140/minute. He did not have a satisfactory heart rate response to intravenous diltiazem. Therefore lopressor IV was given with heart rate decreasing to about 100/minute. Although he has a DNR / DNI status by verbal report from ER doctor, he was started on bipap for comfort in the ED for hypoxia and dyspnea and tachypnea despite high flow mask oxygen. He has a history of Wernicke's encephalopathy. - Related Data Allergies/Adverse Reactions: Allergies Allergy/AdvReac Type Severity Reaction Status Date / Time No Known Allergies Allergy Verified 09/08/17 17:33 Home Medications: Home Meds ARIPiprazole [Abilify] 15 mg PO BEDTIME 11/07/14 [History] Aspirin [Jim Chewable] 81 mg PO DAILY 11/07/14 [History] Calcium Citrate/Vitamin D3 [Calcet Creamy Bites] 1 each PO DAILY 11/07/14 [ History] Cholecalciferol (Vitamin D3) [Vitamin D] 400 units PO DAILY 11/07/14 [History] Divalproex Sodium [Depakote ER] 1,000 mg PO BID 11/07/14 [History] Furosemide [Lasix] 40 mg PO DAILY 11/07/14 [History] Levothyroxine Sodium [Synthroid] 100 mcg PO SUTUWETHSA@0730 11/07/14 [History] Multivitamin [Multivitamins] 1 each PO DAILY 11/07/14 [History] busPIRone HCl [Buspirone HCl] 30 mg PO BID 11/07/14 [History] Acetaminophen [Tylenol Arthritis] 650 mg PO Q6H PRN 09/06/17 [History] Divalproex Sodium 250 mg PO BEDTIME 09/06/17 [History] Levothyroxine 150 mcg PO MOFR@0730 09/06/17 [History] Solifenacin Succinate [Vesicare] 10 mg PO DAILY 09/06/17 [History] Sulfamethoxazole/Trimethoprim [Bactrim Ds Tablet] 1 each PO BID #20 tablet 09/06 [Rx] Thiamine [Vitamin B-1] 100 mg PO DAILY 09/06/17 [History] predniSONE [Prednisone] 20 mg PO DAILY #5 tablet 09/06/17 [Rx] Past Medical History HEENT History: Reports: Impaired Vision Cardiovascular History: Reports: None Respiratory History: Reports: Pneumonia, Recurrent Gastrointestinal History: Reports: None. Denies: Cirrhosis Genitourinary History: Reports: Other (See Below) Other Genitourinary History: Chronic Kidney Disease Musculoskeletal History: Reports: None Neurological History: Reports: Other (See Below) Other Neuro History: Wernickes encephalopathy Psychiatric History: Reports: Addiction, Alzheimers Disease, Anxiety, Dementia , Depression, Mood Swings, Schizophrenia Endocrine/Metabolic History: Reports: Diabetes, Type II Hematologic History: Reports: Other (See Below). Denies: Anticoagulation Therapy Other Hematologic History: Thiamine deficiency Immunologic History: Reports: None Oncologic (Cancer) History: Reports: None Dermatologic History: Reports: None - Past Surgical History Head Surgeries/Procedures: Reports: None HEENT Surgical History: Reports: None Cardiovascular Surgical History: Reports: None Respiratory Surgical History: Reports: None Male Surgical History: Reports: None Endocrine Surgical History: Reports: None Neurological Surgical History: Reports: None Musculoskeletal Surgical History: Reports: None Oncologic Surgical History: Reports: None Dermatological Surgical History: Reports: None Social & Family History - Family History Family Medical History: Noncontributory - Tobacco Use Smoking Status *Q: Never Smoker Years of Tobacco use: 35 Used Tobacco, but Quit: Yes Month Tobacco Last Used: Many years ago Second Hand Smoke Exposure: No - Caffeine Use Caffeine Use: Reports: None - Alcohol Use Days Per Week of Alcohol Use: 0 - Recreational Drug Use Recreational Drug Use: No H&P Review of Systems - Review of Systems: Review Of Systems: Unable To Obtain (patient is non verbal at the time of my examination) Exam - Exam Exam: See Below - Vital Signs Vital Signs: Last Vital Signs Temp 102.7 F H 09/08/17 18:07 Pulse 128 H 09/08/17 18:59 Resp 48 H 09/08/17 17:35 BP 112/57 L 09/08/17 18:59 Pulse Ox 85 L 09/08/17 17:39 Weight: 202.8 kg - Exam General: Other (bipap currently being used. He is non verbal. He makes some vocal sounds in response to questions but no understandable words.) HEENT: Other (lips moist) Neck: No: JVD, Thyromegaly Lungs: Crackles (faint crackles over the right chest on auscultaton) Cardiovascular: Regular Rate, Regular Rhythm GI/Abdominal Exam: Normal Bowel Sounds, Soft (Male) Exam: Deferred Rectal (Males) Exam: Deferred Extremities: No Pedal Edema. No: Slow Capillary Refill (normal distal capillary refill; feet warm; thickened dystrophic toe nails) Skin: Warm Neurological: No: Normal Speech Physical Exam Comments:: bilateral 4-5 Hz pill rolling tremor intermittent; cogwheeling rigidity UE's heart rate about 100 / minute - Patient Data Result Diagrams: 09/08/17 18:18 09/08/17 18:18 *Q Meaningful Use (ADM) - VTE *Q VTE Criteria *Q: - Stroke *Q Stroke Criteria *Q: - AMI *Q AMI Criteria *Q: - Problem List (1) Bilateral pneumonia SNOMED Code(s): 108102130 ICD Code: J18.9 - PNEUMONIA, UNSPECIFIED ORGANISM Status: Acute Current Visit: Yes (2) Hypoxia SNOMED Code(s): 785273037 ICD Code: R09.02 - HYPOXEMIA Status: Acute Current Visit: Yes (3) Wernickes encephalopathy SNOMED Code(s): 21278699 ICD Code: E51.2 - WERNICKE'S ENCEPHALOPATHY Status: Acute Current Visit: Yes (4) Parkinsons disease SNOMED Code(s): 80717919 ICD Code: G20 - PARKINSON'S DISEASE Status: Acute Current Visit: Yes (5) Dementia SNOMED Code(s): 84820846 ICD Code: F03.90 - UNSPECIFIED DEMENTIA WITHOUT BEHAVIORAL DISTURBANCE Status: Acute Current Visit: Yes Qualifiers: Dementia type: Parkinson's disease Problem List Initiated/Reviewed/Updated: Yes Orders Last 24hrs: Active Orders 24 hr Category Date Time Status Piperacillin/Tazobactam [Zosyn] 2.25 gm Med 09/08/17 19:20 Active Sodium Chloride 0.9% [Normal Saline] 50 ml IV ONETIME Medication Orders Piperacillin Sod/Tazobactam (Sod 2.25 gm/ Sodium Chloride) 50 mls @ 100 mls/hr IV ONETIME ONE Stop: 09/08/17 19:49 Sodium Chloride (Saline Flush) 10 ml FLUSH ASDIRECTED PRN PRN Reason: Keep Vein Open Sodium Chloride (Saline Flush) 2.5 ml FLUSH ASDIRECTED PRN PRN Reason: Keep Vein Open Assessment/Plan Comment:: 09/08/2017 health care associated pneumonia DNR/DNI see orders Wilfrido Whalen MD
[2017-09-08] MEDS ORDERED: Morphine 2 MG/ML Syringe IVPUSH PRN (19:56)
[2017-09-08] MEDS ORDERED: Ondansetron 4 MG/2 ML SDV IVPUSH PRN (19:56)
[2017-09-08] MEDS ORDERED: Metoprolol Tartrate 5 MG/5 ML SDV IVPUSH PRN (20:28)
[2017-09-08] MEDS ORDERED: Acetaminophen 325 MG Tab PO PRN (20:52)
[2017-09-08] MEDS ORDERED: Lactated Ringers 1,000 ML IV SCH (21:00)
[2017-09-08] MEDS: Albuterol/Ipratropium 3.0-0.5 MG/3 ML Neb Soln ONE (22:04)
[2017-09-08] MEDS ORDERED: Lactated Ringers 500 ML IV ONE (22:05)
[2017-09-08] MEDS ORDERED: Lactated Ringers 1,000 ML IV ONE (22:05)
[2017-09-08] MEDS: LORazepam 2 MG/ML SDV IVPUSH PRN ×2 (22:15→22:21)
[2017-09-08] MEDS: Heparin Sodium 5,000 Units/ML Vial SUBCUT SCH (22:17)
[2017-09-08] MEDS ORDERED: Ketorolac 15 MG/ML SDV IVPUSH PRN (22:58)
[2017-09-08] MEDS: Divalproex Sodium 500 MG Tab.ER PO SCH (23:00)
[2017-09-08] MEDS: Divalproex Sodium Delayed-Release 250 MG Tab.CR PO SCH (23:00)
[2017-09-08] MEDS: busPIRone 5 MG Tab PO SCH (23:01)
[2017-09-08] MEDS: Pantoprazole 40 MG Vial IVPUSH SCH (23:01)
[2017-09-08] MEDS: Vancomycin 1.5 GM in Sodium Chloride 0.9% 500 ML IV SCH (23:40)
[2017-09-08] MEDS: Lactated Ringers 1,000 ML IV SCH (23:49)
[2017-09-09] MEDS: Pantoprazole 40 MG Vial IVPUSH SCH ×3 (01:35→20:07)
[2017-09-09] MEDS: Piperacillin/Tazobactam 2.25 GM in Sodium Chloride 0.9% 50 ML IV SCH ×4 (01:39→20:23)
[2017-09-09] MEDS: Albuterol/Ipratropium 3.0-0.5 MG/3 ML Neb Soln NEB SCH ×4 (01:43→17:32)
[2017-09-09] MEDS: Lactated Ringers 500 ML IV PRN ×3 (05:04→18:54)
[2017-09-09] MEDS: Heparin Sodium 5,000 Units/ML Vial SUBCUT SCH ×2 (08:17→20:38)
[2017-09-09] MEDS: Lactated Ringers 1,000 ML IV SCH ×2 (08:29→20:22)
[2017-09-09] MEDS: Aspirin 81 MG Tab.Chew PO SCH (09:01)
[2017-09-09] MEDS: Divalproex Sodium 500 MG Tab.ER PO SCH ×2 (09:02→21:09)
[2017-09-09] MEDS: busPIRone 5 MG Tab PO SCH ×2 (09:02→21:09)
[2017-09-09] MEDS: Multivitamins with Iron/Calcium/Folic Acid/Minerals Tab PO SCH (09:03)
[2017-09-09] MEDS: Non-Formulary Medication 1 Each (Solifenacin Succinate [Vesicare] 10 MG) PO SCH (09:03)
[2017-09-09] MEDS: Thiamine 100 MG Tab PO SCH (09:04)
--- NOTE | 2017-09-09 10:08 | CR ---
EXAM DATE: 09/08/17 PATIENT'S AGE: 72 Patient: HONEY LEON Facility: [place], [place] Site . Site : 1945 Study: XRay Chest [id number]/12/2018 5:54:49 PM Ordering Physician: Anthony Lopez Final Report: Indication: Respiratory distress Technique portable chest Comparison chest x-ray 09/06/2017 05/27/2017. Findings Stable cardiac mediastinal silhouette. Aorta tortuous. Left apical pleural parenchymal fibrotic change stable from 2017. Bilateral pleural thickening unchanged from the prior study. Nodular right mid and lower lung airspace opacities which have developed from the most recent study. Left basilar patchy opacities as well. No pneumothorax. Multiple surgical clips in the epigastrium and left upper abdomen. IMPRESSION: 1. Interval worsening with the right mid and lower lobe patchy airspace opacities. Left lower lobe patchy opacities which have increased from the most recent study. Chronic bilateral pleural thickening. Dictated by Ramandeep Ellington MD @ Sep 08 2017 6:07PM (Electronic Signature) Report Signed by Proxy. YESENIA
[2017-09-09] MEDS ORDERED: Magnesium Sulfate/Water 2 GM in Premix Bag 1 BAG IV ONE (10:27)
--- NOTE | 2017-09-09 15:12 | PCM.SN ---
- Free Text/Narrative Note: I spoke with his DPOA Mandy Yeung by phone and reconfirmed DNR/DNI status. I advised other interventions , such as the use of pressors, that would be unlikely to change the watermelon inspector outcome and actually could increase suffering. She agrees. We will continue with the use of antibiotics, bipap and intravenous fluids. Wilfrido Whalen MD
[2017-09-09] MEDS: Vancomycin 1.5 GM in Sodium Chloride 0.9% 500 ML IV SCH (15:46)
[2017-09-09] MEDS: LORazepam 2 MG/ML SDV IVPUSH PRN (18:12)
--- NOTE | 2017-09-09 18:19 | PCM.PN ---
- General Info Date of Service: 09/09/17 Subjective Update: She has white count continues to rise he is on BiPAP as that has helped him in terms of his respiratory status and he does appear to be comfortable. Patient is a DNR/DNI. Tramadol and is going to speak with his medical POA in regards to how much of an intervention we would like to do for this patient including the possibility of using pressors. Currently we are maintaining the patient's pressures based upon fluid resuscitation. - Patient Data Vitals - Most Recent: Last Vital Signs Temp 36.7 C 09/09/17 16:00 Pulse 97 09/09/17 16:00 Resp 14 09/09/17 16:00 BP 87/54 L 09/09/17 16:00 Pulse Ox 93 L 09/09/17 16:00 Weight - Most Recent: 202.8 kg I&O - Last 24 Hours: Intake & Output 09/09/17 09/09/17 09/09/17 06:59 14:59 22:59 Intake Total 2300 650 0 Output Total 550 550 Balance 1750 650 -550 Lab Results Last 24 Hours: Laboratory Results - last 24 hr 09/09/17 09/09/17 Range/Units 05:11 05:11 WBC 21.68 H (4.0-11.0) K/uL RBC 3.47 L (4.50-5.90) M/uL Hgb 11.1 L (13.0-17.0) g/dL Hct 35.4 L (38.0-50.0) % MCV 102.0 H (80.0-98.0) fL MCH 32.0 (27.0-32.0) pg MCHC 31.4 (31.0-37.0) g/dL RDW Std Deviation 63.8 H (28.0-62.0) fl RDW Coeff of Bernabe 17 H (11.0-15.0) % Plt Count 190 (150-400) K/uL MPV 10.90 (7.40-12.00) fL Add Manual Diff YES Neutrophils % (Manual) 59 (48.0-80.0) % Band Neutrophils % 3 % Lymphocytes % (Manual) 29 (16.0-40.0) % Monocytes % (Manual) 9 (0.0-15.0) % Nucleated RBC % 0.0 /100WBC Absolute Seg Neuts 12.8 H (1.4-5.7) Band Neutrophils # 0.7 Lymphocytes # (Manual) 6.3 H (0.6-2.4) Monocytes # (Manual) 2.0 H (0.0-0.8) Nucleated RBCs # 0 K/uL Sodium 142 (136-148) mmol/L Potassium 5.0 (3.5-5.1) mmol/L Chloride 106 (98-107) mmol/L Carbon Dioxide 34.4 H (21.0-32.0) mmol/L BUN 45 H (7.0-18.0) mg/dL Creatinine 2.0 H (0.8-1.3) mg/dL Est Cr Clr Drug Dosing 34.37 mL/min Estimated GFR (MDRD) 33.2 ml/min Glucose 89 (74-106) mg/dL Calcium 9.4 (8.5-10.1) mg/dL Phosphorus 2.7 (2.6-4.7) mg/dL Magnesium 1.2 L (1.5-2.0) mg/dL Total Bilirubin 0.6 (0.2-1.0) mg/dL AST 33 (15-37) IU/L ALT 12 L (14-63) IU/L Alkaline Phosphatase 45 L (46-116) U/L Total Protein 5.5 L (6.4-8.2) g/dL Albumin 1.8 L (3.4-5.0) g/dL Globulin 3.7 H (2.0-3.5) g/dL Albumin/Globulin Ratio 0.5 L (1.3-2.8) Moi Results Last 24 Hours: Microbiology 09/08/17 22:15 Gram Stain - Preliminary Sputum - Induced Med Orders - Current: Current Medications Acetaminophen (Tylenol) 650 mg PO Q6H PRN PRN Reason: Pain Albuterol/Ipratropium (Duoneb 3.0-0.5 Mg/3 Ml) 3 ml NEB Q6HRRT [facility] Last Admin: 09/09/17 17:32 Dose: 3 ml Aripiprazole (Abilify) 15 mg PO BEDTIME [facility] Aspirin (Aspirin) 81 mg PO DAILY [facility] Last Admin: 09/09/17 09:01 Dose: Not Given Buspirone HCl (Buspar) 30 mg PO BID [facility] Last Admin: 09/09/17 09:02 Dose: Not Given Divalproex Sodium (Depakote Er) 1,000 mg PO BID [facility] Last Admin: 09/09/17 09:02 Dose: Not Given Divalproex Sodium (Divalproex Sodium) 250 mg PO BEDTIME [facility] Last Admin: 09/08/17 23:00 Dose: Not Given Heparin Sodium (Porcine) (Heparin Sodium) 5,000 units SUBCUT Q12HR [facility] Last Admin: 09/09/17 08:17 Dose: 5,000 units Lactated Ringer's (Ringers, Lactated) 1,000 mls @ 75 mls/hr IV ASDIRECTED [facility] Last Admin: 09/09/17 08:29 Dose: 75 mls/hr Levofloxacin/Dextrose 500 mg/ (Premix) 100 mls @ 100 mls/hr IV Q48H [facility] Piperacillin Sod/Tazobactam (Sod 2.25 gm/ Sodium Chloride) 50 mls @ 100 mls/hr IV Q6H [facility] Last Admin: 09/09/17 13:23 Dose: 100 mls/hr Vancomycin HCl 1.5 gm/ Sodium (Chloride) 500 mls @ 333.333 mls/hr IV Q18H [facility] Last Admin: 09/09/17 15:46 Dose: 333.333 mls/hr Lactated Ringer's (Ringers, Lactated) 500 mls @ 999 mls/hr IV ASDIRECTED PRN PRN Reason: Other Last Admin: 09/09/17 09:36 Dose: 999 mls/hr Ketorolac Tromethamine (Toradol) 15 mg IVPUSH Q6H PRN PRN Reason: Fever Stop: 09/13/17 22:58 Last Admin: 09/08/17 23:27 Dose: 15 mg Levothyroxine Sodium (Levothyroxine) 150 mcg PO MOFR@0730 [facility] Lorazepam (Ativan) 0.5 mg IVPUSH Q4H PRN PRN Reason: Anxiety Last Admin: 09/09/17 18:12 Dose: 0.5 mg Lorazepam (Ativan) 1 mg IVPUSH Q2H PRN PRN Reason: Seizures Metoprolol Tartrate (Lopressor) 5 mg IVPUSH Q2H PRN PRN Reason: Tachycardia Last Admin: 09/08/17 23:11 Dose: 5 mg Morphine Sulfate (Morphine) 2 mg IVPUSH Q2H PRN PRN Reason: Pain (severe 7-10) Stop: 09/09/17 20:06 Multivitamins/Minerals (Thera M Plus) 1 tab PO DAILY [facility] Last Admin: 09/09/17 09:03 Dose: Not Given Non-Formulary Medication (Solifenacin Succinate [Vesicare]) 10 mg PO DAILY [facility] Last Admin: 09/09/17 09:03 Dose: Not Given Ondansetron HCl (Zofran) 4 mg IVPUSH Q4H PRN PRN Reason: Nausea Pantoprazole Sodium (Protonix Iv) 40 mg IVPUSH Q12H [facility] Last Admin: 09/09/17 08:13 Dose: 40 mg Sodium Chloride (Saline Flush) 10 ml FLUSH ASDIRECTED PRN PRN Reason: Keep Vein Open Sodium Chloride (Saline Flush) 2.5 ml FLUSH ASDIRECTED PRN PRN Reason: Keep Vein Open Thiamine HCl (Vitamin B-1) 100 mg PO DAILY [facility] Last Admin: 09/09/17 09:04 Dose: Not Given Vancomycin HCl (Pharmacy To Dose - Vancomycin) 1 dose .XX ASDIRECTED [facility] Discontinued Medications Acetaminophen (Tylenol) 650 mg RECTAL NOW ONE Stop: 09/08/17 17:35 Last Admin: 09/08/17 18:07 Dose: 650 mg Albuterol/Ipratropium (Duoneb 3.0-0.5 Mg/3 Ml) 3 ml NEB ONETIME ONE Stop: 09/08/17 17:26 Last Admin: 09/08/17 17:40 Dose: 3 ml Albuterol/Ipratropium (Duoneb 3.0-0.5 Mg/3 Ml) Confirm Administered Dose 3 ml .ROUTE .STK-MED ONE Stop: 09/08/17 21:57 Last Admin: 09/08/17 22:04 Dose: 3 ml Diltiazem HCl (Diltiazem) 20 mg IVPUSH ONETIME ONE Stop: 09/08/17 17:57 Last Admin: 09/08/17 18:20 Dose: 20 mg Diltiazem HCl (Diltiazem) Confirm Administered Dose 25 mg .ROUTE .STK-MED ONE Stop: 09/08/17 17:56 Last Admin: 09/08/17 18:09 Dose: Not Given Furosemide (Lasix) 40 mg IVPUSH NOW ONE Stop: 09/08/17 17:26 Last Admin: 09/08/17 18:07 Dose: 40 mg Furosemide (Lasix) Confirm Administered Dose 40 mg .ROUTE .STK-MED ONE Stop: 09/08/17 17:46 Last Admin: 09/08/17 18:09 Dose: Not Given Levofloxacin/Dextrose 500 mg/ (Premix) 100 mls @ 100 mls/hr IV ONETIME ONE Stop: 09/08/17 19:07 Last Admin: 09/08/17 18:22 Dose: 100 mls/hr Piperacillin Sod/Tazobactam (Sod 2.25 gm/ Sodium Chloride) 50 mls @ 100 mls/hr IV ONETIME ONE Stop: 09/08/17 19:49 Last Admin: 09/08/17 19:43 Dose: 100 mls/hr Sodium Chloride (Normal Saline) Confirm Administered Dose 50 mls @ as directed .ROUTE .STK-MED ONE Stop: 09/08/17 19:39 Last Admin: 09/08/17 23:01 Dose: Not Given Lactated Ringer's (Ringers, Lactated) 1,000 mls @ 125 mls/hr IV ASDIRECTED [facility] Last Infusion: 09/08/17 18:15 Dose: 250 mls/hr Lactated Ringer's (Ringers, Lactated) 1,000 mls @ 999 mls/hr IV .BOLUS ONE Stop: 09/08/17 23:05 Last Admin: 09/08/17 22:14 Dose: 999 mls/hr Lactated Ringer's (Ringers, Lactated) 500 mls @ 999 mls/hr IV SEECOMMENT ONE Stop: 09/08/17 22:35 Last Admin: 09/09/17 02:15 Dose: Not Given Magnesium Sulfate 2 gm/ Premix 50 mls @ 25 mls/hr IV ONETIME ONE Stop: 09/09/17 12:26 Last Admin: 09/09/17 10:55 Dose: 25 mls/hr Lorazepam (Ativan) 0.5 mg IVPUSH ONETIME ONE Stop: 09/08/17 18:08 Last Admin: 09/08/17 18:21 Dose: 0.5 mg Metoprolol Tartrate (Lopressor) 5 mg IVPUSH Q5M [facility] Stop: 09/08/17 18:56 Last Admin: 09/08/17 23:02 Dose: Not Given Nitroglycerin (Nitro-Bid 2%) 1 gm TOP ONETIME ONE Stop: 09/08/17 17:34 Last Admin: 09/08/17 17:50 Dose: 1 gm Piperacillin Sod/Tazobactam Sod (Zosyn) Confirm Administered Dose 2.25 gm .ROUTE .STK-MED ONE Stop: 09/08/17 19:38 Last Admin: 09/08/17 21:10 Dose: Not Given - Exam Quality Assessment: Supplemental Oxygen General: Moderate Distress Lungs: Crackles, Rales, Wheezing Cardiovascular: Tachycardia - Problem List Review Problem List Initiated/Reviewed/Updated: Yes - My Orders Last 24 Hours: My Active Orders 09/09/17 18:17 Resuscitation Status Routine - Plan Plan:: This is a 72-year-old male who is presenting with hypoxemia, increasing leukocytosis, increasing LFTs likely secondary to acute respiratory failure due to gram positives and probable gram-negative pneumonia requiring broad-spectrum IV antibiotics and BiPAP support.
[2017-09-09] MEDS ORDERED: ARIPiprazole 10 MG Tab PO SCH (21:00)
[2017-09-09] MEDS: Divalproex Sodium Delayed-Release 250 MG Tab.CR PO SCH (21:09)
[2017-09-10] MEDS: LORazepam 2 MG/ML SDV IVPUSH PRN ×3 (01:17→11:13)
[2017-09-10] MEDS: Piperacillin/Tazobactam 2.25 GM in Sodium Chloride 0.9% 50 ML IV SCH ×3 (01:31→15:08)
[2017-09-10] MEDS: Albuterol/Ipratropium 3.0-0.5 MG/3 ML Neb Soln NEB SCH ×3 (05:57→11:23)
[2017-09-10] MEDS: Pantoprazole 40 MG Vial IVPUSH SCH (08:08)
[2017-09-10] MEDS: Heparin Sodium 5,000 Units/ML Vial SUBCUT SCH (08:12)
[2017-09-10] MEDS: Divalproex Sodium 500 MG Tab.ER PO SCH (08:23)
[2017-09-10] MEDS: busPIRone 5 MG Tab PO SCH (08:23)
[2017-09-10] MEDS: Aspirin 81 MG Tab.Chew PO SCH (08:23)
[2017-09-10] MEDS: Multivitamins with Iron/Calcium/Folic Acid/Minerals Tab PO SCH (08:24)
[2017-09-10] MEDS: Non-Formulary Medication 1 Each (Solifenacin Succinate [Vesicare] 10 MG) PO SCH (08:24)
[2017-09-10] MEDS: Thiamine 100 MG Tab PO SCH (08:24)
[2017-09-10] MEDS: Vancomycin 1.5 GM in Sodium Chloride 0.9% 500 ML IV SCH (11:08)
[2017-09-10] MEDS: Lactated Ringers 1,000 ML IV SCH (13:01)
--- NOTE | 2017-09-10 13:37 | PCM.PN ---
- General Info Date of Service: 09/10/17 Admission Dx/Problem (Free Text): Admission Diagnosis/Problem Admission Diagnosis/Problem Pneumonia Subjective Update: Patient is about the same, still on BiPAP, minimal improvement over the past 24 hours. On broad-spectrum IV antibiotics leukocytosis Has started to decrease slightly as compared to previous 2 days. - Review of Systems General: Reports: Weakness - Patient Data Vitals - Most Recent: Last Vital Signs Temp 37.3 C 09/10/17 12:00 Pulse 101 H 09/10/17 12:00 Resp 20 09/10/17 12:00 BP 105/57 L 09/10/17 12:00 Pulse Ox 93 L 09/10/17 12:00 Weight - Most Recent: 202.8 kg I&O - Last 24 Hours: Intake & Output 09/09/17 09/10/17 09/10/17 22:59 06:59 14:59 Intake Total 1000 950 Output Total 550 750 Balance 450 200 Lab Results Last 24 Hours: Laboratory Results - last 24 hr 09/10/17 09/10/17 09/10/17 Range/Units 04:54 04:54 04:54 WBC 19.90 H (4.0-11.0) K/uL RBC 3.45 L (4.50-5.90) M/uL Hgb 11.2 L (13.0-17.0) g/dL Hct 35.9 L (38.0-50.0) % MCV 104.1 H (80.0-98.0) fL MCH 32.5 H (27.0-32.0) pg MCHC 31.2 (31.0-37.0) g/dL RDW Std Deviation 65.4 H (28.0-62.0) fl RDW Coeff of Bernabe 17 H (11.0-15.0) % Plt Count 176 (150-400) K/uL MPV 10.70 (7.40-12.00) fL Add Manual Diff YES Neutrophils % (Manual) 60 (48.0-80.0) % Band Neutrophils % 11 % Lymphocytes % (Manual) 29 (16.0-40.0) % Nucleated RBC % 0.0 /100WBC Absolute Seg Neuts 11.9 H (1.4-5.7) Band Neutrophils # 2.2 Lymphocytes # (Manual) 5.8 H (0.6-2.4) Nucleated RBCs # 0 K/uL Sodium 147 (136-148) mmol/L Potassium 4.5 (3.5-5.1) mmol/L Chloride 110 H (98-107) mmol/L Carbon Dioxide 34.1 H (21.0-32.0) mmol/L BUN 44 H (7.0-18.0) mg/dL Creatinine 1.6 H (0.8-1.3) mg/dL Est Cr Clr Drug Dosing 42.96 mL/min Estimated GFR (MDRD) 42.9 ml/min Glucose 69 L (74-106) mg/dL Calcium 9.7 (8.5-10.1) mg/dL Magnesium 1.7 (1.5-2.0) mg/dL Total Bilirubin 0.4 (0.2-1.0) mg/dL AST 89 H (15-37) IU/L ALT 23 (14-63) IU/L Alkaline Phosphatase 53 (46-116) U/L Total Protein 5.7 L (6.4-8.2) g/dL Albumin 1.6 L (3.4-5.0) g/dL Globulin 4.1 H (2.0-3.5) g/dL Albumin/Globulin Ratio 0.4 L (1.3-2.8) Med Orders - Current: Current Medications Acetaminophen (Tylenol) 650 mg PO Q6H PRN PRN Reason: Pain Albuterol/Ipratropium (Duoneb 3.0-0.5 Mg/3 Ml) 3 ml NEB Q6HRRT [facility] Last Admin: 09/10/17 11:23 Dose: 3 ml Aripiprazole (Abilify) 15 mg PO BEDTIME [facility] Last Admin: 09/09/17 21:08 Dose: Not Given Aspirin (Aspirin) 81 mg PO DAILY [facility] Last Admin: 09/10/17 08:23 Dose: Not Given Buspirone HCl (Buspar) 30 mg PO BID [facility] Last Admin: 09/10/17 08:23 Dose: Not Given Divalproex Sodium (Depakote Er) 1,000 mg PO BID [facility] Last Admin: 09/10/17 08:23 Dose: Not Given Divalproex Sodium (Divalproex Sodium) 250 mg PO BEDTIME [facility] Last Admin: 09/09/17 21:09 Dose: Not Given Heparin Sodium (Porcine) (Heparin Sodium) 5,000 units SUBCUT Q12HR [facility] Last Admin: 09/10/17 08:12 Dose: 5,000 units Lactated Ringer's (Ringers, Lactated) 1,000 mls @ 75 mls/hr IV ASDIRECTED [facility] Last Admin: 09/10/17 13:01 Dose: 75 mls/hr Levofloxacin/Dextrose 500 mg/ (Premix) 100 mls @ 100 mls/hr IV Q48H [facility] Piperacillin Sod/Tazobactam (Sod 2.25 gm/ Sodium Chloride) 50 mls @ 100 mls/hr IV Q6H [facility] Last Admin: 09/10/17 08:08 Dose: 100 mls/hr Vancomycin HCl 1.5 gm/ Sodium (Chloride) 500 mls @ 333.333 mls/hr IV Q18H [facility] Last Admin: 09/10/17 11:08 Dose: 333.333 mls/hr Lactated Ringer's (Ringers, Lactated) 500 mls @ 999 mls/hr IV ASDIRECTED PRN PRN Reason: Other Last Admin: 09/09/17 18:54 Dose: 999 mls/hr Ketorolac Tromethamine (Toradol) 15 mg IVPUSH Q6H PRN PRN Reason: Fever Stop: 09/13/17 22:58 Last Admin: 09/08/17 23:27 Dose: 15 mg Levothyroxine Sodium (Levothyroxine) 150 mcg PO MOFR@0730 [facility] Lorazepam (Ativan) 0.5 mg IVPUSH Q4H PRN PRN Reason: Anxiety Last Admin: 09/10/17 11:13 Dose: 0.5 mg Lorazepam (Ativan) 1 mg IVPUSH Q2H PRN PRN Reason: Seizures Last Admin: 09/10/17 03:33 Dose: 1 mg Metoprolol Tartrate (Lopressor) 5 mg IVPUSH Q2H PRN PRN Reason: Tachycardia Last Admin: 09/08/17 23:11 Dose: 5 mg Multivitamins/Minerals (Thera M Plus) 1 tab PO DAILY [facility] Last Admin: 09/10/17 08:24 Dose: Not Given Non-Formulary Medication (Solifenacin Succinate [Vesicare]) 10 mg PO DAILY [facility] Last Admin: 09/10/17 08:24 Dose: Not Given Ondansetron HCl (Zofran) 4 mg IVPUSH Q4H PRN PRN Reason: Nausea Pantoprazole Sodium (Protonix Iv) 40 mg IVPUSH Q12H [facility] Last Admin: 09/10/17 08:08 Dose: 40 mg Sodium Chloride (Saline Flush) 10 ml FLUSH ASDIRECTED PRN PRN Reason: Keep Vein Open Sodium Chloride (Saline Flush) 2.5 ml FLUSH ASDIRECTED PRN PRN Reason: Keep Vein Open Thiamine HCl (Vitamin B-1) 100 mg PO DAILY [facility] Last Admin: 09/10/17 08:24 Dose: Not Given Vancomycin HCl (Pharmacy To Dose - Vancomycin) 1 dose .XX ASDIRECTED [facility] Discontinued Medications Acetaminophen (Tylenol) 650 mg RECTAL NOW ONE Stop: 09/08/17 17:35 Last Admin: 09/08/17 18:07 Dose: 650 mg Albuterol/Ipratropium (Duoneb 3.0-0.5 Mg/3 Ml) 3 ml NEB ONETIME ONE Stop: 09/08/17 17:26 Last Admin: 09/08/17 17:40 Dose: 3 ml Albuterol/Ipratropium (Duoneb 3.0-0.5 Mg/3 Ml) Confirm Administered Dose 3 ml .ROUTE .STK-MED ONE Stop: 09/08/17 21:57 Last Admin: 09/08/17 22:04 Dose: 3 ml Diltiazem HCl (Diltiazem) 20 mg IVPUSH ONETIME ONE Stop: 09/08/17 17:57 Last Admin: 09/08/17 18:20 Dose: 20 mg Diltiazem HCl (Diltiazem) Confirm Administered Dose 25 mg .ROUTE .STK-MED ONE Stop: 09/08/17 17:56 Last Admin: 09/08/17 18:09 Dose: Not Given Furosemide (Lasix) 40 mg IVPUSH NOW ONE Stop: 09/08/17 17:26 Last Admin: 09/08/17 18:07 Dose: 40 mg Furosemide (Lasix) Confirm Administered Dose 40 mg .ROUTE .STK-MED ONE Stop: 09/08/17 17:46 Last Admin: 09/08/17 18:09 Dose: Not Given Levofloxacin/Dextrose 500 mg/ (Premix) 100 mls @ 100 mls/hr IV ONETIME ONE Stop: 09/08/17 19:07 Last Admin: 09/08/17 18:22 Dose: 100 mls/hr Piperacillin Sod/Tazobactam (Sod 2.25 gm/ Sodium Chloride) 50 mls @ 100 mls/hr IV ONETIME ONE Stop: 09/08/17 19:49 Last Admin: 09/08/17 19:43 Dose: 100 mls/hr Sodium Chloride (Normal Saline) Confirm Administered Dose 50 mls @ as directed .ROUTE .STK-MED ONE Stop: 09/08/17 19:39 Last Admin: 09/08/17 23:01 Dose: Not Given Lactated Ringer's (Ringers, Lactated) 1,000 mls @ 125 mls/hr IV ASDIRECTED [facility] Last Infusion: 09/08/17 18:15 Dose: 250 mls/hr Lactated Ringer's (Ringers, Lactated) 1,000 mls @ 999 mls/hr IV .BOLUS ONE Stop: 09/08/17 23:05 Last Admin: 09/08/17 22:14 Dose: 999 mls/hr Lactated Ringer's (Ringers, Lactated) 500 mls @ 999 mls/hr IV SEECOMMENT ONE Stop: 09/08/17 22:35 Last Admin: 09/09/17 02:15 Dose: Not Given Magnesium Sulfate 2 gm/ Premix 50 mls @ 25 mls/hr IV ONETIME ONE Stop: 09/09/17 12:26 Last Admin: 09/09/17 10:55 Dose: 25 mls/hr Lorazepam (Ativan) 0.5 mg IVPUSH ONETIME ONE Stop: 09/08/17 18:08 Last Admin: 09/08/17 18:21 Dose: 0.5 mg Metoprolol Tartrate (Lopressor) 5 mg IVPUSH Q5M [facility] Stop: 09/08/17 18:56 Last Admin: 09/08/17 23:02 Dose: Not Given Morphine Sulfate (Morphine) 2 mg IVPUSH Q2H PRN PRN Reason: Pain (severe 7-10) Stop: 09/09/17 20:06 Nitroglycerin (Nitro-Bid 2%) 1 gm TOP ONETIME ONE Stop: 09/08/17 17:34 Last Admin: 09/08/17 17:50 Dose: 1 gm Piperacillin Sod/Tazobactam Sod (Zosyn) Confirm Administered Dose 2.25 gm .ROUTE .STK-MED ONE Stop: 09/08/17 19:38 Last Admin: 09/08/17 21:10 Dose: Not Given - Exam Quality Assessment: Supplemental Oxygen General: Moderate Distress Lungs: Crackles, Wheezing Cardiovascular: Regular Rate, Regular Rhythm - Problem List Review Problem List Initiated/Reviewed/Updated: Yes - My Orders Last 24 Hours: My Active Orders 09/09/17 18:17 Resuscitation Status Routine - Plan Plan:: This is a 72-year-old male who is presenting with hypoxemia, increasing leukocytosis, increasing LFTs likely secondary to acute respiratory failure due to gram positives and probable gram-negative pneumonia requiring broad-spectrum IV antibiotics and BiPAP support. Patient status overall is about the same, his leukocytosis is mildly decreased however his respiratory status still has not improved. His vital signs are unchanged from yesterday. We shall be having a discussion with family and his medical heel a in regards to the possibility of switching him over to comfort care/hospice care.
--- NOTE | 2017-09-10 15:50 | PCM.SN ---
- Free Text/Narrative Note: I spoke with Ankita, his sister and with Mandy Yeung, public lead database administrator and his DPOA. We decided on comfort measures based on his overall clinical picture, comorbidities and prognosis. Ankita requests last rites. [employer] office notified. He has no po intake today will order comfort measures. thought to be imminent. Wilfrido Whalen MD
[2017-09-10] MEDS ORDERED: Hyoscyamine 0.125 MG Tab.SL SL PRN (16:37)
[2017-09-10] MEDS ORDERED: Albuterol/Ipratropium 3.0-0.5 MG/3 ML Neb Soln NEB PRN (16:38)
[2017-09-10] MEDS: Morphine 2 MG/ML Syringe IVPUSH PRN (16:58)
[2017-09-10] MEDS ORDERED: Levofloxacin/Dextrose 5%-Water 500 MG in Premix Bag 1 BAG IV SCH (19:00)
[2017-09-11 07:52] VITALS: BP 151/63
[2017-09-11] MEDS ORDERED: Acetaminophen 650 MG Supp RECTAL PRN (08:01)
--- NOTE | 2017-09-11 08:10 | PCM.PN ---
- General Info Date of Service: 09/11/17 - Patient Data Vitals - Most Recent: Last Vital Signs Temp 103.7 F H 09/11/17 07:52 Pulse 136 H 09/11/17 07:52 Resp 16 09/11/17 07:52 BP 151/63 H 09/11/17 07:52 Pulse Ox 79 L 09/11/17 07:52 Weight - Most Recent: 202.8 kg I&O - Last 24 Hours: Intake & Output 09/10/17 09/11/17 09/11/17 22:59 06:59 14:59 Intake Total 1000 0 Output Total 1000 1000 Balance 0 -1000 Moi Results Last 24 Hours: Microbiology 09/08/17 22:15 Gram Stain - Preliminary Sputum - Induced Sputum Culture - Final Staphylococcus Aureus Med Orders - Current: Current Medications Acetaminophen (Tylenol) 650 mg RECTAL Q4H PRN PRN Reason: Pain/Fever Albuterol/Ipratropium (Duoneb 3.0-0.5 Mg/3 Ml) 3 ml NEB Q6HRRT PRN PRN Reason: dyspnea/wheezing Hyoscyamine (Hyomax-Sl) 0.125 mg SL Q4H PRN PRN Reason: secretions Lorazepam (Ativan) 0.5 mg IVPUSH Q4H PRN PRN Reason: Anxiety Last Admin: 09/10/17 11:13 Dose: 0.5 mg Lorazepam (Ativan) 1 mg IVPUSH Q2H PRN PRN Reason: Seizures Last Admin: 09/10/17 03:33 Dose: 1 mg Morphine Sulfate (Morphine) 2 - 4 mg IVPUSH Q1H PRN PRN Reason: pain/agitation/sob Last Admin: 09/10/17 16:58 Dose: 4 mg Ondansetron HCl (Zofran) 4 mg IVPUSH Q4H PRN PRN Reason: Nausea Discontinued Medications Acetaminophen (Tylenol) 650 mg RECTAL NOW ONE Stop: 09/08/17 17:35 Last Admin: 09/08/17 18:07 Dose: 650 mg Acetaminophen (Tylenol) 650 mg PO Q6H PRN PRN Reason: Pain Albuterol/Ipratropium (Duoneb 3.0-0.5 Mg/3 Ml) 3 ml NEB ONETIME ONE Stop: 09/08/17 17:26 Last Admin: 09/08/17 17:40 Dose: 3 ml Albuterol/Ipratropium (Duoneb 3.0-0.5 Mg/3 Ml) 3 ml NEB Q6HRRT [facility] Last Admin: 09/10/17 11:23 Dose: 3 ml Albuterol/Ipratropium (Duoneb 3.0-0.5 Mg/3 Ml) Confirm Administered Dose 3 ml .ROUTE .STK-MED ONE Stop: 09/08/17 21:57 Last Admin: 09/08/17 22:04 Dose: 3 ml Aripiprazole (Abilify) 15 mg PO BEDTIME [facility] Last Admin: 09/09/17 21:08 Dose: Not Given Aspirin (Aspirin) 81 mg PO DAILY [facility] Last Admin: 09/10/17 08:23 Dose: Not Given Buspirone HCl (Buspar) 30 mg PO BID [facility] Last Admin: 09/10/17 08:23 Dose: Not Given Diltiazem HCl (Diltiazem) 20 mg IVPUSH ONETIME ONE Stop: 09/08/17 17:57 Last Admin: 09/08/17 18:20 Dose: 20 mg Diltiazem HCl (Diltiazem) Confirm Administered Dose 25 mg .ROUTE .STK-MED ONE Stop: 09/08/17 17:56 Last Admin: 09/08/17 18:09 Dose: Not Given Divalproex Sodium (Depakote Er) 1,000 mg PO BID [facility] Last Admin: 09/10/17 08:23 Dose: Not Given Divalproex Sodium (Divalproex Sodium) 250 mg PO BEDTIME [facility] Last Admin: 09/09/17 21:09 Dose: Not Given Furosemide (Lasix) 40 mg IVPUSH NOW ONE Stop: 09/08/17 17:26 Last Admin: 09/08/17 18:07 Dose: 40 mg Furosemide (Lasix) Confirm Administered Dose 40 mg .ROUTE .STK-MED ONE Stop: 09/08/17 17:46 Last Admin: 09/08/17 18:09 Dose: Not Given Heparin Sodium (Porcine) (Heparin Sodium) 5,000 units SUBCUT Q12HR [facility] Last Admin: 09/10/17 08:12 Dose: 5,000 units Levofloxacin/Dextrose 500 mg/ (Premix) 100 mls @ 100 mls/hr IV ONETIME ONE Stop: 09/08/17 19:07 Last Admin: 09/08/17 18:22 Dose: 100 mls/hr Piperacillin Sod/Tazobactam (Sod 2.25 gm/ Sodium Chloride) 50 mls @ 100 mls/hr IV ONETIME ONE Stop: 09/08/17 19:49 Last Admin: 09/08/17 19:43 Dose: 100 mls/hr Sodium Chloride (Normal Saline) Confirm Administered Dose 50 mls @ as directed .ROUTE .STK-MED ONE Stop: 09/08/17 19:39 Last Admin: 09/08/17 23:01 Dose: Not Given Lactated Ringer's (Ringers, Lactated) 1,000 mls @ 75 mls/hr IV ASDIRECTED [facility] Last Admin: 09/10/17 13:01 Dose: 75 mls/hr Levofloxacin/Dextrose 500 mg/ (Premix) 100 mls @ 100 mls/hr IV Q48H [facility] Piperacillin Sod/Tazobactam (Sod 2.25 gm/ Sodium Chloride) 50 mls @ 100 mls/hr IV Q6H [facility] Last Admin: 09/10/17 15:08 Dose: 100 mls/hr Lactated Ringer's (Ringers, Lactated) 1,000 mls @ 125 mls/hr IV ASDIRECTED [facility] Last Infusion: 09/08/17 18:15 Dose: 250 mls/hr Vancomycin HCl 1.5 gm/ Sodium (Chloride) 500 mls @ 333.333 mls/hr IV Q18H [facility] Last Admin: 09/10/17 11:08 Dose: 333.333 mls/hr Lactated Ringer's (Ringers, Lactated) 1,000 mls @ 999 mls/hr IV .BOLUS ONE Stop: 09/08/17 23:05 Last Admin: 09/08/17 22:14 Dose: 999 mls/hr Lactated Ringer's (Ringers, Lactated) 500 mls @ 999 mls/hr IV SEECOMMENT ONE Stop: 09/08/17 22:35 Last Admin: 09/09/17 02:15 Dose: Not Given Lactated Ringer's (Ringers, Lactated) 500 mls @ 999 mls/hr IV ASDIRECTED PRN PRN Reason: Other Last Admin: 09/09/17 18:54 Dose: 999 mls/hr Magnesium Sulfate 2 gm/ Premix 50 mls @ 25 mls/hr IV ONETIME ONE Stop: 09/09/17 12:26 Last Admin: 09/09/17 10:55 Dose: 25 mls/hr Ketorolac Tromethamine (Toradol) 15 mg IVPUSH Q6H PRN PRN Reason: Fever Stop: 09/13/17 22:58 Last Admin: 09/08/17 23:27 Dose: 15 mg Levothyroxine Sodium (Levothyroxine) 150 mcg PO MOFR@0730 [facility] Lorazepam (Ativan) 0.5 mg IVPUSH ONETIME ONE Stop: 09/08/17 18:08 Last Admin: 09/08/17 18:21 Dose: 0.5 mg Metoprolol Tartrate (Lopressor) 5 mg IVPUSH Q5M [facility] Stop: 09/08/17 18:56 Last Admin: 09/08/17 23:02 Dose: Not Given Metoprolol Tartrate (Lopressor) 5 mg IVPUSH Q2H PRN PRN Reason: Tachycardia Last Admin: 09/08/17 23:11 Dose: 5 mg Morphine Sulfate (Morphine) 2 mg IVPUSH Q2H PRN PRN Reason: Pain (severe 7-10) Stop: 09/09/17 20:06 Multivitamins/Minerals (Thera M Plus) 1 tab PO DAILY [facility] Last Admin: 09/10/17 08:24 Dose: Not Given Nitroglycerin (Nitro-Bid 2%) 1 gm TOP ONETIME ONE Stop: 09/08/17 17:34 Last Admin: 09/08/17 17:50 Dose: 1 gm Non-Formulary Medication (Solifenacin Succinate [Vesicare]) 10 mg PO DAILY [facility] Last Admin: 09/10/17 08:24 Dose: Not Given Pantoprazole Sodium (Protonix Iv) 40 mg IVPUSH Q12H [facility] Last Admin: 09/10/17 08:08 Dose: 40 mg Piperacillin Sod/Tazobactam Sod (Zosyn) Confirm Administered Dose 2.25 gm .ROUTE .STK-MED ONE Stop: 09/08/17 19:38 Last Admin: 09/08/17 21:10 Dose: Not Given Sodium Chloride (Saline Flush) 10 ml FLUSH ASDIRECTED PRN PRN Reason: Keep Vein Open Sodium Chloride (Saline Flush) 2.5 ml FLUSH ASDIRECTED PRN PRN Reason: Keep Vein Open Thiamine HCl (Vitamin B-1) 100 mg PO DAILY [facility] Last Admin: 09/10/17 08:24 Dose: Not Given Vancomycin HCl (Pharmacy To Dose - Vancomycin) 1 dose .XX ASDIRECTED [facility] - My Orders Last 24 Hours: My Active Orders 09/10/17 16:35 Morphine 2 - 4 mg IVPUSH Q1H PRN Comfort Measures [OM.PC] Routine 09/10/17 16:37 Hyoscyamine [Hyomax-SL] 0.125 mg SL Q4H PRN 09/10/17 16:38 Albuterol/Ipratropium [DuoNeb 3.0-0.5 MG/3 ML] 3 ml NEB Q6HRRT PRN 09/11/17 08:01 Acetaminophen [Tylenol] 650 mg RECTAL Q4H PRN - Plan Plan:: This is a 72-year-old male who is presenting with hypoxemia, increasing leukocytosis, increasing LFTs likely secondary to acute respiratory failure due to gram positives and probable gram-negative pneumonia requiring broad-spectrum IV antibiotics and BiPAP support. Patient status overall is about the same, his leukocytosis is mildly decreased however his respiratory status still has not improved. His vital signs are unchanged from yesterday. We shall be having a discussion with family and his medical heel a in regards to the possibility of switching him over to comfort care/hospice care.
[2017-09-11] MEDS: Morphine 2 MG/ML Syringe IVPUSH PRN ×3 (08:45→11:33)
--- NOTE | 2017-09-11 12:24 | PCM.DCSUM1 ---
Discharge Summary - Hospital Course Brief History: This 72 year old male with pmh of recurrent pneumonia, CKD, Wernickes encephalopathy and alzheimers disease presented to the ED with worsening hypoxia and dyspnea. He was seen 2 days prior to admission for hypoxia and was discharged back to [place] on antibiotics. He returned with increased dyspnea, hypoxia, acute respiratory failure, and fever. CXR shows a multifocal pneumonia. He was noted in the ED to have atrial fibrillation with RVR to a rate of 140/minute. He did not have a satisfactory heart rate response to intravenous diltiazem. Therefore lopressor IV was given with heart rate decreasing to about 100/minute. He was started on bipap for comfort in the ED for hypoxia due to dyspnea and tachypnea continuing on high flow mask oxygen. In the ED leukocytosis noted 17,000 febrile at 102 deg F. BUN 38, Cr 1.6. CXR revealed multifocal infiltrates. He was admitted with health care associated pneumonia, sepsis and acute respiratory failure. - Discharge Data Discharge Date: 09/11/17 Discharge Disposition: 20 Preliminary Cause of *Q: Sepsis & Multi System Organ Failure Condition: - Patient Summary/Data Consults: Consultations 09/08/17 19:56 Respiratory Care Assess and Treatment [CONS] Routine - Discharge Plan Home Medications: Home Meds ARIPiprazole [Abilify] 15 mg PO BEDTIME 11/07/14 [History] Aspirin [Jim Chewable] 81 mg PO DAILY 11/07/14 [History] Calcium Citrate/Vitamin D3 [Calcet Creamy Bites] 1 each PO DAILY 11/07/14 [ History] Cholecalciferol (Vitamin D3) [Vitamin D] 400 units PO DAILY 11/07/14 [History] Divalproex Sodium [Depakote ER] 1,000 mg PO BID 11/07/14 [History] Furosemide [Lasix] 40 mg PO DAILY 11/07/14 [History] Levothyroxine Sodium [Synthroid] 100 mcg PO SUTUWETHSA@0730 11/07/14 [History] Multivitamin [Multivitamins] 1 each PO DAILY 11/07/14 [History] busPIRone HCl [Buspirone HCl] 30 mg PO BID 11/07/14 [History] Acetaminophen [Tylenol Arthritis] 650 mg PO Q6H PRN 09/06/17 [History] Divalproex Sodium 250 mg PO BEDTIME 09/06/17 [History] Levothyroxine 150 mcg PO MOFR@0730 09/06/17 [History] Solifenacin Succinate [Vesicare] 10 mg PO DAILY 09/06/17 [History] Sulfamethoxazole/Trimethoprim [Bactrim Ds Tablet] 1 each PO BID #20 tablet 09/06 [Rx] Thiamine [Vitamin B-1] 100 mg PO DAILY 09/06/17 [History] predniSONE [Prednisone] 20 mg PO DAILY #5 tablet 09/06/17 [Rx] Hydrocortisone [Hydrocortisone 1% Crm] 1 applic TOP TID 09/09/17 [History] - Discharge Summary/Plan Comment DC Time >30 min.: No Discharge Summary/Plan Comment: Cause of Severe sepsis of 48 hours duration secondary to staph aureus pneumonia and Enterococcus faecalis UTI for 7 days duration Secondary diagnoses: Acute respiratory failure with hypoxia Unresponsive Comfort measures/palliative care Afib with RVR Protein malnutrition Wernicke's encephalopathy Alzheimer's disease Hx tobacco use (quit 35 + years ago) Doug was admitted and initially treated for suspected gram negative sarah infection due to being a residential resident with broad spectrum antibiotics, including Levaquin, Zosyn, Vancomycin. He was continued on antibiotics and oxygen support on Bipap. Dr Whalen in contact with NICCI Galvan and sister Ankita regarding treatment goals of patient. Doug the follow day continued to worsening in status, requiring more oxygen and worsening in labs, sepsis continuing. Yesterday afternoon, the decision was made with help of sister and NICCI to transfer Doug to palliative care/comfort measures. All IVFs, antibiotics were removed and Morphine Ativan and Hyoscamine started to help with comfort. Today oxygen was removed and Morphine was provided for comfort. Doug continued to be unresponsive. Pulse very thready and dyspnea noted. Nursing staff notified Dr Whalen and I patient had no respiratory efforts or pulse. At [address] Whalen and myself at bedside, was found to have no respirations and no pulse. Sister Ankita at bedside at time of . I also called NICCI Galvan and notified her of Doug's . Family called personal sole blacker to come by. Nursing to assist in transfer of body to care of home. - Patient Data Vitals - Most Recent: Last Vital Signs Temp 103.4 F H 09/11/17 08:15 Pulse 136 H 09/11/17 07:52 Resp 16 09/11/17 07:52 BP 151/63 H 09/11/17 07:52 Pulse Ox 79 L 09/11/17 07:52 Weight - Most Recent: 202.8 kg I&O - Last 24 hours: Intake & Output 09/10/17 09/11/17 09/11/17 22:59 06:59 14:59 Intake Total 1000 0 Output Total 1000 1000 Balance 0 -1000 RAHEEL Results - Last 24 hrs: Microbiology 09/08/17 22:15 Gram Stain - Preliminary Sputum - Induced Sputum Culture - Final Staphylococcus Aureus Med Orders - Current: Current Medications Acetaminophen (Tylenol) 650 mg RECTAL Q4H PRN PRN Reason: Pain/Fever Last Admin: 09/11/17 08:15 Dose: 650 mg Albuterol/Ipratropium (Duoneb 3.0-0.5 Mg/3 Ml) 3 ml NEB Q6HRRT PRN PRN Reason: dyspnea/wheezing Hyoscyamine (Hyomax-Sl) 0.125 mg SL Q4H PRN PRN Reason: secretions Lorazepam (Ativan) 0.5 mg IVPUSH Q4H PRN PRN Reason: Anxiety Last Admin: 09/10/17 11:13 Dose: 0.5 mg Lorazepam (Ativan) 1 mg IVPUSH Q2H PRN PRN Reason: Seizures Last Admin: 09/10/17 03:33 Dose: 1 mg Morphine Sulfate (Morphine) 2 - 4 mg IVPUSH Q1H PRN PRN Reason: pain/agitation/sob Last Admin: 09/11/17 11:33 Dose: 4 mg Ondansetron HCl (Zofran) 4 mg IVPUSH Q4H PRN PRN Reason: Nausea Discontinued Medications Acetaminophen (Tylenol) 650 mg RECTAL NOW ONE Stop: 09/08/17 17:35 Last Admin: 09/08/17 18:07 Dose: 650 mg Acetaminophen (Tylenol) 650 mg PO Q6H PRN PRN Reason: Pain Albuterol/Ipratropium (Duoneb 3.0-0.5 Mg/3 Ml) 3 ml NEB ONETIME ONE Stop: 09/08/17 17:26 Last Admin: 09/08/17 17:40 Dose: 3 ml Albuterol/Ipratropium (Duoneb 3.0-0.5 Mg/3 Ml) 3 ml NEB Q6HRRT [facility] Last Admin: 09/10/17 11:23 Dose: 3 ml Albuterol/Ipratropium (Duoneb 3.0-0.5 Mg/3 Ml) Confirm Administered Dose 3 ml .ROUTE .STK-MED ONE Stop: 09/08/17 21:57 Last Admin: 09/08/17 22:04 Dose: 3 ml Aripiprazole (Abilify) 15 mg PO BEDTIME [facility] Last Admin: 09/09/17 21:08 Dose: Not Given Aspirin (Aspirin) 81 mg PO DAILY [facility] Last Admin: 09/10/17 08:23 Dose: Not Given Buspirone HCl (Buspar) 30 mg PO BID [facility] Last Admin: 09/10/17 08:23 Dose: Not Given Diltiazem HCl (Diltiazem) 20 mg IVPUSH ONETIME ONE Stop: 09/08/17 17:57 Last Admin: 09/08/17 18:20 Dose: 20 mg Diltiazem HCl (Diltiazem) Confirm Administered Dose 25 mg .ROUTE .STK-MED ONE Stop: 09/08/17 17:56 Last Admin: 09/08/17 18:09 Dose: Not Given Divalproex Sodium (Depakote Er) 1,000 mg PO BID [facility] Last Admin: 09/10/17 08:23 Dose: Not Given Divalproex Sodium (Divalproex Sodium) 250 mg PO BEDTIME [facility] Last Admin: 09/09/17 21:09 Dose: Not Given Furosemide (Lasix) 40 mg IVPUSH NOW ONE Stop: 09/08/17 17:26 Last Admin: 09/08/17 18:07 Dose: 40 mg Furosemide (Lasix) Confirm Administered Dose 40 mg .ROUTE .STK-MED ONE Stop: 09/08/17 17:46 Last Admin: 09/08/17 18:09 Dose: Not Given Heparin Sodium (Porcine) (Heparin Sodium) 5,000 units SUBCUT Q12HR [facility] Last Admin: 09/10/17 08:12 Dose: 5,000 units Levofloxacin/Dextrose 500 mg/ (Premix) 100 mls @ 100 mls/hr IV ONETIME ONE Stop: 09/08/17 19:07 Last Admin: 09/08/17 18:22 Dose: 100 mls/hr Piperacillin Sod/Tazobactam (Sod 2.25 gm/ Sodium Chloride) 50 mls @ 100 mls/hr IV ONETIME ONE Stop: 09/08/17 19:49 Last Admin: 09/08/17 19:43 Dose: 100 mls/hr Sodium Chloride (Normal Saline) Confirm Administered Dose 50 mls @ as directed .ROUTE .STK-MED ONE Stop: 09/08/17 19:39 Last Admin: 09/08/17 23:01 Dose: Not Given Lactated Ringer's (Ringers, Lactated) 1,000 mls @ 75 mls/hr IV ASDIRECTED [facility] Last Admin: 09/10/17 13:01 Dose: 75 mls/hr Levofloxacin/Dextrose 500 mg/ (Premix) 100 mls @ 100 mls/hr IV Q48H [facility] Piperacillin Sod/Tazobactam (Sod 2.25 gm/ Sodium Chloride) 50 mls @ 100 mls/hr IV Q6H [facility] Last Admin: 09/10/17 15:08 Dose: 100 mls/hr Lactated Ringer's (Ringers, Lactated) 1,000 mls @ 125 mls/hr IV ASDIRECTED [facility] Last Infusion: 09/08/17 18:15 Dose: 250 mls/hr Vancomycin HCl 1.5 gm/ Sodium (Chloride) 500 mls @ 333.333 mls/hr IV Q18H [facility] Last Admin: 09/10/17 11:08 Dose: 333.333 mls/hr Lactated Ringer's (Ringers, Lactated) 1,000 mls @ 999 mls/hr IV .BOLUS ONE Stop: 09/08/17 23:05 Last Admin: 09/08/17 22:14 Dose: 999 mls/hr Lactated Ringer's (Ringers, Lactated) 500 mls @ 999 mls/hr IV SEECOMMENT ONE Stop: 09/08/17 22:35 Last Admin: 09/09/17 02:15 Dose: Not Given Lactated Ringer's (Ringers, Lactated) 500 mls @ 999 mls/hr IV ASDIRECTED PRN PRN Reason: Other Last Admin: 09/09/17 18:54 Dose: 999 mls/hr Magnesium Sulfate 2 gm/ Premix 50 mls @ 25 mls/hr IV ONETIME ONE Stop: 09/09/17 12:26 Last Admin: 09/09/17 10:55 Dose: 25 mls/hr Ketorolac Tromethamine (Toradol) 15 mg IVPUSH Q6H PRN PRN Reason: Fever Stop: 09/13/17 22:58 Last Admin: 09/08/17 23:27 Dose: 15 mg Levothyroxine Sodium (Levothyroxine) 150 mcg PO MOFR@0730 [facility] Lorazepam (Ativan) 0.5 mg IVPUSH ONETIME ONE Stop: 09/08/17 18:08 Last Admin: 09/08/17 18:21 Dose: 0.5 mg Metoprolol Tartrate (Lopressor) 5 mg IVPUSH Q5M [facility] Stop: 09/08/17 18:56 Last Admin: 09/08/17 23:02 Dose: Not Given Metoprolol Tartrate (Lopressor) 5 mg IVPUSH Q2H PRN PRN Reason: Tachycardia Last Admin: 09/08/17 23:11 Dose: 5 mg Morphine Sulfate (Morphine) 2 mg IVPUSH Q2H PRN PRN Reason: Pain (severe 7-10) Stop: 09/09/17 20:06 Multivitamins/Minerals (Thera M Plus) 1 tab PO DAILY [facility] Last Admin: 09/10/17 08:24 Dose: Not Given Nitroglycerin (Nitro-Bid 2%) 1 gm TOP ONETIME ONE Stop: 09/08/17 17:34 Last Admin: 09/08/17 17:50 Dose: 1 gm Non-Formulary Medication (Solifenacin Succinate [Vesicare]) 10 mg PO DAILY [facility] Last Admin: 09/10/17 08:24 Dose: Not Given Pantoprazole Sodium (Protonix Iv) 40 mg IVPUSH Q12H [facility] Last Admin: 09/10/17 08:08 Dose: 40 mg Piperacillin Sod/Tazobactam Sod (Zosyn) Confirm Administered Dose 2.25 gm .ROUTE .STK-MED ONE Stop: 09/08/17 19:38 Last Admin: 09/08/17 21:10 Dose: Not Given Sodium Chloride (Saline Flush) 10 ml FLUSH ASDIRECTED PRN PRN Reason: Keep Vein Open Sodium Chloride (Saline Flush) 2.5 ml FLUSH ASDIRECTED PRN PRN Reason: Keep Vein Open Thiamine HCl (Vitamin B-1) 100 mg PO DAILY [facility] Last Admin: 09/10/17 08:24 Dose: Not Given Vancomycin HCl (Pharmacy To Dose - Vancomycin) 1 dose .XX ASDIRECTED [facility] *Q Meaningful Use (DIS) - VTE *Q VTE Criteria *Q: - Stroke *Q Stroke Criteria *Q: - AMI *Q AMI Criteria *Q:
[2017-09-12] MEDS ORDERED: Levothyroxine 150 MCG Tab PO SCH (07:30)
== END 2017-09-11 17:00 | disposition expired | DRG 871 ==
LOC: MW.ED 17:20 → MW.MS 18:41
PROVIDERS: ADMIT Family Medicine; ATTEND Family Medicine
DX: A41.01 Sepsis due to Methicillin susceptible Staphylococcus aureus (principal); R09.02 Hypoxemia; E86.0 Dehydration; N28.9 Disorder of kidney and ureter, unspecified; J15.211 Pneumonia due to Methicillin susceptible Staphylococcus aureus; J96.01 Acute respiratory failure with hypoxia; E51.2 Wernicke's encephalopathy; N39.0 Urinary tract infection, site not specified; E46 Unspecified protein-calorie malnutrition; R65.20 Severe sepsis without septic shock; A41.51 Sepsis due to Escherichia coli [E. coli]; G20 Parkinson's disease; G30.9 Alzheimer's disease, unspecified; F02.80 Dementia in other diseases classified elsewhere, unspecified severity, without behavioral disturbance, psychotic disturbance, mood disturbance, and anxiety; Z66 Do not resuscitate; F41.9 Anxiety disorder, unspecified; F20.9 Schizophrenia, unspecified; N18.9 Chronic kidney disease, unspecified; E11.9 Type 2 diabetes mellitus without complications; H54.7 Unspecified visual loss; F32.9 Major depressive disorder, single episode, unspecified; Z87.891 Personal history of nicotine dependence; Z51.5 Encounter for palliative care; I48.91 Unspecified atrial fibrillation; Y95 Nosocomial condition; R41.82 Altered mental status, unspecified; Z79.82 Long term (current) use of aspirin; Z99.81 Dependence on supplemental oxygen; Z79.899 Other long term (current) drug therapy
CPT/HCPCS: 71045; 80053; 83880; 84484; 85025; 87040 ×2; 87086; 87186; 93005; 94640; 96361; 96365; 96375; 99285; A9270 ×2; J1940; J1956; J2060; J3490 ×2; J7120; 36415; 83735; 84100; 87070; 87077; 87088; 87205; 94660; 99284; C9113; J1644; J1885; J2270; J2543; J3370; J3475; J7040; J7050